=== PATIENT | female | born 1950 | race Caucasian/White ===

== ENCOUNTER → 2022-03-20 09:31 | Outpatient (BNVA) | payer MEDICARE, SELFPAY | PROVIDERS: PCP Physician Assistant Medical; Visit Provider Hospitalist | DX: R91.8 Other nonspecific abnormal finding of lung field (principal); J84.9 Interstitial pulmonary disease, unspecified; J18.9 Pneumonia, unspecified organism; R06.00 Dyspnea, unspecified; I71.2 Thoracic aortic aneurysm, without rupture; K44.9 Diaphragmatic hernia without obstruction or gangrene | CPT/HCPCS: 99202 ==

== ENCOUNTER 2022-04-23 10:45 | Outpatient (REF) | payer MEDICARE, SELFPAY ==
--- NOTE | 2022-04-23 12:55 | PFT_ITS ---
FLOWS: FEV1 of 83% of predicted at 1.95 L. FVC 72% of predicted at 2.26 L. FEV1 to FVC ratio of 0.86. No bronchodilator response. LUNG VOLUMES: Total lung capacity 80% of predicted at 4.32 L. Residual volume 73% of predicted at 1.74 L. Slow vital capacity 86% of predicted at 2.58 L. Expiratory reserve volume 31% of predicted at 0.23 L. Diffusion capacity is moderately decreased, diffusion capacity adjust to being mildly decreased after correction for alveolar ventilation. IMPRESSION: No obstructive or restrictive ventilatory defect. No bronchodilator response. Decreased expiratory reserve volume suggests extrathoracic restriction likely secondary to abdominal obesity. Decreased diffusion capacity suggests emphysema. MD RICK Portillo/MODL / [id number]
== END 2022-04-23 10:46 | disposition home or self-care (01) ==
LOC: HO.RESP 10:45
PROVIDERS: PCP Physician Assistant Medical; Visit Provider Hospitalist
DX: J18.9 Pneumonia, unspecified organism (principal); R06.00 Dyspnea, unspecified
CPT/HCPCS: 94060; 94727; 94729

== ENCOUNTER → 2022-05-02 09:33 | Outpatient (BNVA) | payer MEDICARE, SELFPAY | PROVIDERS: PCP Physician Assistant Medical; Visit Provider Hospitalist | DX: R91.8 Other nonspecific abnormal finding of lung field (principal); J84.9 Interstitial pulmonary disease, unspecified; I71.2 Thoracic aortic aneurysm, without rupture; K44.9 Diaphragmatic hernia without obstruction or gangrene; R06.00 Dyspnea, unspecified | CPT/HCPCS: 99212 ==

== ENCOUNTER 2022-07-19 08:08 | Outpatient (REF) | payer MEDICARE, SELFPAY ==
--- NOTE | ~2022-07-19 | FL_ITS ---
EXAMINATION: FL BARIUM SWALLOW CLINICAL INFORMATION: Gastroesophageal reflux disease without esophagitis COMPARISON: None TECHNIQUE: Barium swallow examination is performed using fluoroscopic evaluation in addition to multiple fluoroscopic spot views. The patient is imaged both upright and prone and using both thick and thin sulfate along with effervescent granules. Barium tablet was also administered. Fluoroscopy time: 1.2 minutes DAP: 7.2 Gycm2 Images: 48 FINDINGS: The swallowing mechanism appears normal. No aspiration or penetration is seen. There is posterior impression on the lower cervical esophagus suggestive of a prominent cricopharyngeus muscle. There is a small fixed hiatal hernia. There may be a small paraesophageal component as well. There is a prominent Schatzki ring. Barium tablet passed freely into the stomach. There is abnormal esophageal motility with tertiary contractions seen particularly when the patient is in the prone/CASEY position. There is trace gastroesophageal reflux. FL/FL barium swallow IMPRESSION: Small fixed hiatal hernia with Schatzki ring and probable small paraesophageal component as well. Trace gastroesophageal reflux. Abnormal esophageal motility with tertiary contractions, particularly when the patient is in the prone/CASEY position.
== END 2022-07-19 08:09 | disposition home or self-care (01) ==
LOC: HO.XRAY 08:08
PROVIDERS: PCP Physician Assistant Medical; Visit Provider Hospitalist
DX: K21.9 Gastro-esophageal reflux disease without esophagitis (principal); K44.9 Diaphragmatic hernia without obstruction or gangrene
CPT/HCPCS: 74220

== ENCOUNTER → 2022-08-22 10:03 | Outpatient (BNVA) | payer MEDICARE, SELFPAY | PROVIDERS: PCP Physician Assistant Medical; Visit Provider Hospitalist | DX: R91.8 Other nonspecific abnormal finding of lung field (principal); J84.9 Interstitial pulmonary disease, unspecified; K44.9 Diaphragmatic hernia without obstruction or gangrene; R06.00 Dyspnea, unspecified | CPT/HCPCS: 99212 ==

== ENCOUNTER → 2022-11-23 09:54 | Outpatient (BNVA) | payer MEDICARE, SELFPAY | PROVIDERS: PCP Physician Assistant Medical; Visit Provider Hospitalist | DX: R91.8 Other nonspecific abnormal finding of lung field (principal); J84.9 Interstitial pulmonary disease, unspecified; J18.9 Pneumonia, unspecified organism; I71.21 Aneurysm of the ascending aorta, without rupture; K44.9 Diaphragmatic hernia without obstruction or gangrene; R06.00 Dyspnea, unspecified | CPT/HCPCS: 99212 ==

== ENCOUNTER 2023-06-17 09:25 | Outpatient (AMB) | payer MEDICARE, SELFPAY ==
[2023-06-17 09:35] VITALS: BP 140/78; PULSE 66; O2SAT 98; BMI 31.3
--- NOTE | 2023-06-17 09:35 | MHC.OFFVIS ---
Intake Vital Signs 06/17/23 09:35 Height 5 ft 6 in Weight 194 lb 0.108 oz BMI 31.3 BP 140/78 H Blood Pressure Location Rt brachial Position Sitting Pulse 66 Pulse Source Pulse Oximeter Pulse Oximetry (%) 98 Oxygen Delivery Method Room Air Intake Visit Reasons: ILD Unix Developer Required: No Allergies No Known Allergies Allergy (Verified 06/17/23 09:38) HPI HPI Comments History of Present Illness Details The patient is a 73-year-old woman with a known history of an ascending aortic aneurysm followed closely by cardiology was been complaining of worsening dyspnea symptoms for the last few years. She did discuss the findings of the aneurysm with her spraying machine operator who felt that the aneurysm was not resulting in any respiratory symptoms. In the meantime in view of her dyspnea symptoms she did undergo a stress test and currently waiting for the results. Due to her worsening this symptom she did undergo a chest x-ray that was read to be abnormal and subsequently followed up with a CT scan of the chest. I personally reviewed the CT scan of the chest with her. It appears that she does have some reticular changes at the bases suggesting little bit of scarring and atelectasis. And she also has some patchy areas of ground-glass opacities could represent evidence of atelectasis and or pneumonitis. Patient also had some calcified pulmonary nodules consistent with granulomas bilaterally subcentimeter in size. In addition to that the patient did have a hiatal hernia. She does have underlying reflux symptoms and they apparently have been getting worse. Explained to the patient that the reflux disease will result in potential pharyngeal laryngeal penetration and ultimately can result in a change issue that she has on her CT scan the patient is a will start practicing more reflux diet and following some recommendations that were provided. In the meantime we talked about other potential etiologies for the abnormalities on her CT scan suggesting some degree of interstitial lung disease. She is going to undergo blood work in addition to pulmonary function studies to further delineate. No need for bronchoscopy or biopsy at this point. Will discuss that further after reviewing her blood work and her pulmonary function studies. Further questioning the patient denies any smoking her life. She does live in a farm and they grow [place] trees. The patient does not have any birds and denies any other significant exposures. 05/02/2022 the patient is here for a pulmonary follow-up visit. Overall she is doing about the same. She has not had to use her rescue inhaler. She continues to have some shortness of breath mild in severity. We did review all her blood work which was all negative for any connective tissue conditions, allergic go hypersensitivity reactions. No clear explanation for her interstitial changes primarily at the bases. The most likely etiology is from micro aspirations due to her hiatal hernia. Lately she has been having increasing epigastric discomfort. She did talk to her GI doctor about that. Her last endoscopy was several years ago. In view of her worsening GI symptoms and also findings on the CT scan I will request a barium swallow. We did talk about promotility agents although I do not feel the patient needs any promotility agents at this time. However, she will trial of sucralfate to see if it provides her some relief with her symptoms. Still we talked about the importance of the reflux diet the small meals and also sleeping elevated. will plan to to repeat her CT scan but primarily by her degree of symptoms. We will discuss that during the next visit. 08/22/2022 the patient is here for pulmonary follow-up visit. She is about the same. Still complaining of the dyspnea on exertion. again, will look at her pulmonary function studies there is the moderate diffusion impairment with DLCO 52% predicted. And again on her CT scan we personally reviewed demonstrating evidence of ground-glass opacities primarily in the right low lower with some areas of scarring and some minimal tree-in-bud. The distribution could be explained by microaspiration. Although other interstitial lung conditions are the differential. As far as the workup has been negative for any secondary causes the indeterminate with blood work. We did review her recent barium swallow demonstrating multiple abnormalities. She already has an appointment with GI and therefore will make sure that they have all the information available. The patient ultimately will need a repeat CT scan which with beginning of 2022 will follow-up with those results. I am hoping that the patient does not develop any progression of the underlying changes. Meantime I we did talk about other etiologies to explain the decreased diffusing capacity including pulmonary hypertension and anemia. She already had her hemoglobin checked which was okay. She does have a appointment with Cardiology soon a more been that she can get an echocardiogram to just address the question of pulmonary hypertension. 11/23/2022 The patient is here for a pulmonary follow up visit. Still complaining of dypnea on exertion. Doing well with her reflux. She did have a esophageal dilation. Still complaining of cough. Mild of moderate in severity. No sifnigicant response to the MARY. Will trial Symbicort. 06/17/2023 the patient is here for a pulmonary follow-up visit. She continues to be about the same. Complaining of dyspnea on exertion. Moderate severity. She did not trial the Symbicort because was 400 dollars for co-pay and was not worth it. In the meantime the patient has been using her Protonix and also trying to maintain a reflux diet. Explained to her that back respirations is likely resulting in the changes in her lung issues. The patient has not had a CT scan in more than a year. At this point repeating the CT scan will be important. Depending on the results we can consider an alternative to the Symbicort. We again reviewed her pulmonary function studies demonstrating a moderate decrease in the diffusing capacity. Depending on her CT scan we can also consider repeating the PFTs. We also reviewed her blood work and was all negative for any connective tissue disease or hyper sensitivity reactions. If there is any worsening of her interstitial lung disease we will discuss further diagnostic interventions. [facility] Medical History (Updated 03/20/22 @ 13:06 by David Pires MD) Dyspnea Hiatal hernia History of colon polyps Hyperlipidemia Hypertension Hypothyroidism ILD (interstitial lung disease) Pneumonitis Pulmonary nodules Thoracic ascending aortic aneurysm Surgical History (Updated 03/20/22 @ 09:20 by Jesenia Salinas PA-C) History of appendectomy History of partial hysterectomy History of tonsillectomy History of vaginal surgery Social History (Updated 03/20/22 @ 09:48 by RASHID James) Patient Tobacco Use Status: Never used Tobacco Review of Systems Const Denies fatigue and Denies weight loss Eyes Denies change in vision ENT Reports no additional complaints Card Denies chest pain, Reports dyspnea on exertion, Denies orthopnea and Denies paroxysmal nocturnal dyspnea Resp Reports cough and Reports dyspnea on exertion GI Denies abdominal pain, Denies dyspepsia and Reports heartburn Musc Reports no additional complaints Skin/Breast Denies rash Neuro Reports no additional complaints Psych Reports no additional complaints Endo Reports no additional complaints and Denies fatigue Physical Exam Vital Signs: Last Vital Signs Pulse 66 06/17/23 09:35 BP 140/78 H 06/17/23 09:35 Pulse Ox 98 06/17/23 09:35 Oxygen Delivery Method Room Air 06/17/23 09:35 BMI result Body Mass Index 31.3 Const General: alert Neck Neck: Yes normal visual inspection, Yes full ROM and Yes no lymphadenopathy Chest Chest palpation & inspection: normal inspection of the chest Resp Auscultation: no rales and diminished lung sounds Cardio Rate: regular rate Rhythm: regular rhythm Heart sounds: S1 normal heart sound present and S2 normal heart sound present GI Palpation (GI): Soft to palpation and nontender Auscultation: normal bowel sounds Skin General skin exam: rashes and/or lesions noted Assessment & Plan Assessment & Plan (1) Pulmonary nodules: Code(s): R91.8 - Other nonspecific abnormal finding of lung field (2) ILD (interstitial lung disease): Code(s): J84.9 - Interstitial pulmonary disease, unspecified (3) Pneumonitis: Code(s): J18.9 - Pneumonia, unspecified organism (4) Thoracic ascending aortic aneurysm: Comment: (4.5cm on 02/06/[address]) Code(s): I71.2 - Thoracic aortic aneurysm, without rupture (5) Hiatal hernia: Code(s): K44.9 - Diaphragmatic hernia without obstruction or gangrene (6) Dyspnea: Code(s): R06.00 - Dyspnea, unspecified Qualifiers: Dyspnea type: dyspnea on exertion Qualified Code(s): R06.00 - Dyspnea, unspecified Plan Continue with reflux diet short-acting beta agonist as needed CT chest follow-up in 3-4 months Orders: Orders CT chest wo IV con Today J18.9 - Pneumonia, unspecified organism, J84.9 - Interstitial pulmonary disease, unspecified Coding Level of Care Code Est Pt Level 4 (29280) Diagnoses Pulmonary nodules R91.8 ILD (interstitial lung disease) J84.9 Pneumonitis J18.9 Thoracic ascending aortic aneurysm I71.2 Hiatal hernia K44.9 Dyspnea R06.00 Dyspnea type: dyspnea on exertion Time Spent (min) 19
== END 2023-06-17 09:57 | disposition home or self-care (01) ==
PROVIDERS: PCP Physician Assistant Medical; Visit Provider Hospitalist
DX: R91.8 Other nonspecific abnormal finding of lung field (principal); J84.9 Interstitial pulmonary disease, unspecified; I71.20 Thoracic aortic aneurysm, without rupture, unspecified; K44.9 Diaphragmatic hernia without obstruction or gangrene; R06.00 Dyspnea, unspecified
CPT/HCPCS: 99214

== ENCOUNTER → 2023-06-17 09:25 | Outpatient (BNVA) | payer MEDICARE, SELFPAY | PROVIDERS: PCP Physician Assistant Medical; Visit Provider Hospitalist | DX: J84.9 Interstitial pulmonary disease, unspecified (principal); R06.00 Dyspnea, unspecified; R91.8 Other nonspecific abnormal finding of lung field; I71.20 Thoracic aortic aneurysm, without rupture, unspecified; K44.9 Diaphragmatic hernia without obstruction or gangrene | CPT/HCPCS: 99212 ==

== ENCOUNTER 2024-01-10 08:58 | Outpatient (AMB) | payer MEDICARE, SELFPAY ==
[2024-01-10 09:04] VITALS: BP 128/70; PULSE 67; O2SAT 96; BMI 30.7
--- NOTE | 2024-01-10 09:04 | A.OFFVIS_ITS ---
Intake Vital Signs 01/10/24 09:04 Height 5 ft 6 in Weight 190 lb BMI 30.7 BP 128/70 Blood Pressure Location Rt brachial Position Sitting Pulse 67 Pulse Source Pulse Oximeter Pulse Oximetry (%) 96 Oxygen Delivery Method Room Air Intake Visit Reasons: ILD [employer] Pot Press Operator Required: No Allergies No Known Allergies Allergy (Verified 01/10/24 09:07) HPI HPI Comments History of Present Illness Details The patient is a 73-year-old woman with a known history of an ascending aortic aneurysm followed closely by cardiology was been complaining of worsening dyspnea symptoms for the last few years. She did discuss the findings of the aneurysm with her territory supervisor who felt that the aneurysm was not resulting in any respiratory symptoms. In the meantime in view of her dyspnea symptoms she did undergo a stress test and currently waiting for the results. Due to her worsening this symptom she did undergo a chest x-ray that was read to be abnormal and subsequently followed up with a CT scan of the chest. I personally reviewed the CT scan of the chest with her. It appears that she does have some reticular changes at the bases suggesting little bit of scarring and atelectasis. And she also has some patchy areas of ground-glass opacities could represent evidence of atelectasis and or pneumonitis. Patient also had some calcified pulmonary nodules consistent with granulomas bilaterally subcentimeter in size. In addition to that the patient did have a hiatal hernia. She does have underlying reflux symptoms and they apparently have been getting worse. Explained to the patient that the reflux disease will result in potential pharyngeal laryngeal penetration and ultimately can result in a change issue that she has on her CT scan the patient is a will start practicing more reflux diet and following some recommendations that were provided. In the meantime we talked about other potential etiologies for the abnormalities on her CT scan suggesting some degree of interstitial lung disease. She is going to undergo blood work in addition to pulmonary function studies to further delineate. No need for bronchoscopy or biopsy at this point. Will discuss that further after reviewing her blood work and her pulmonary function studies. Further questioning the patient denies any smoking her life. She does live in a farm and they grow [place] trees. The patient does not have any birds and denies any other significant exposures. 08/22/2022 the patient is here for pulmo nary follow-up visit. She is about the same. Still complaining of the dyspnea on exertion. again, will look at her pulmonary function studies there is the moderate diffusion impairment with DLCO 52% predicted. And again on her CT scan we personally reviewed demonstrating evidence of ground-glass opacities primarily in the right low lower with some areas of scarring and some minimal tree-in-bud. The distribution could be explained by microaspiration. Although other interstitial lung conditions are the differential. As far as the workup has been negative for any secondary causes the indeterminate with blood work. We did review her recent barium swallow demonstrating multiple abnormalities. She already has an appointment with GI and therefore will make sure that they have all the information available. The patient ultimately will need a repeat CT scan which with beginning of 2022 will follow-up with those results. I am hoping that the patient does not develop any progression of the underlying changes. Meantime I we did talk about other etiologies to explain the decreased diffusing capacity including pulmonary hypertension and anemia. She already had her hemoglobin checked which was okay. She does have a appointment with Cardiology soon a more been that she can get an echocardiogram to just address the question of pulmonary hypertension. 06/17/2023 the patient is here for a pulmo [facility] follow-up visit. She continues to be about the same. Complaining of dyspnea on exertion. Moderate severity. She did not trial the Symbicort because was 400 dollars for co-pay and was not worth it. In the meantime the patient has been using her Protonix and also trying to maintain a reflux diet. Explained to her that back respirations is likely resulting in the changes in her lung issues. The patient has not had a CT scan in more than a year. At this point repeating the CT scan will be important. Depending on the results we can consider an alternative to the Symbicort. We again reviewed her pulmonary function studies demonstrating a moderate decrease in the diffusing capacity. Depending on her CT scan we can also consider repeating the PFTs. We also reviewed her blood work and was all negative for any connective tissue disease or hyper sensitivity reactions. If there is any worsening of her interstitial lung disease we will discuss further diagnostic interventions. 01/10/2024 [facility] The patient continues to be about the same. Still complains of dyspnea on exertion. Moderate severity also has reflux symptoms. She has been on PPIs. She does follow closely with her doctors regarding her hiatal hernia. We did look at her last CT scan of the chest that was done back in June 2023 demonstrating areas of interstitial lung disease met primarily in the right lung with atelectasis. She also has pulmonary nodules. We have already done blood work evaluation to assess her interstitial lung disease and it was pretty unremarkable. I did suspect that has to do with aspiration pneumonitis. She is likely micro aspirating do her Hiatal hernia. Therefore, will go ahead and start her on a promotility agent just for 4 weeks and see if she sees any improvement. In addition to that due to the pneumonitis will start her on inhaled cortical steroid to see if that can improve the inflammatory changes. We did look at her last pulmonary function studies. There were hard for her to do. Still it demonstrated that she had a moderate diffusion impairment. Explained to her that that is likely causing her to have the increased shortness breath with activity. The other option is to use prednisone but at this point the patient would like to hold off on using any systemic steroids because of the adverse effects. She is agreeable to trying an inhaled cortical steroid to try to decrease that inflammation without causing the systemic adverse effects. This point the patient will start inhaled cortical steroids and will try the azithromycin for now. Will plan to repeat CT scan in June 2024 and will quickly follow-up after that to follow-up those changes. If the patient has any worsening symptoms prior to that she will call the office. [facility] Medical History (Updated 03/20/22 @ 13:06 by David Pires MD) Dyspnea Pneumonitis ILD (interstitial lung disease) Pulmonary nodules Hiatal hernia History of colon polyps Hypothyroidism Thoracic ascending aortic aneurysm Hyperlipidemia Hypertension Surgical History (Updated 03/20/22 @ 09:20 by Jesenia Salinas PA-C) History of vaginal surgery History of partial hysterectomy History of tonsillectomy History of appendectomy Social History (Updated 03/20/22 @ 09:48 by RASHID James) Patient Tobacco Use Status: Never used Tobacco Review of Systems Const Denies fatigue and Denies weight loss Eyes Denies change in vision ENT Reports no additional complaints Card Denies chest pain, Reports dyspnea on exertion, Denies orthopnea and Denies paroxysmal nocturnal dyspnea Resp Reports cough and Reports dyspnea on exertion GI Denies abdominal pain, Reports dyspepsia and Reports heartburn Musc Reports no additional complaints Skin/Breast Denies rash Neuro Reports no additional complaints Psych Reports no additional complaints Endo Reports no additional complaints and Denies fatigue Physical Exam Vital Signs: Last Vital Signs Pulse 67 01/10/24 09:04 BP 128/70 01/10/24 09:04 Pulse Ox 96 01/10/24 09:04 Oxygen Delivery Method Room Air 01/10/24 09:04 BMI result Body Mass Index 30.7 Const General: alert Neck Neck: Yes normal visual inspection, Yes full ROM and Yes no lymphadenopathy Chest Chest palpation & inspection: normal inspection of the chest Resp Auscultation: no rales and diminished lung sounds Cardio Rate: regular rate Rhythm: regular rhythm Heart sounds: S1 normal heart sound present and S2 normal heart sound present GI Palpation (GI): Soft to palpation and nontender Auscultation: normal bowel sounds Skin General skin exam: rashes and/or lesions noted Assessment & Plan Assessment & Plan (1) Pulmonary nodules: Code(s): R91.8 - Other nonspecific abnormal finding of lung field (2) ILD (interstitial lung disease): Code(s): J84.9 - Interstitial pulmonary disease, unspecified (3) Pneumonitis: Code(s): J18.9 - Pneumonia, unspecified organism (4) Thoracic ascending aortic aneurysm: Comment: (4.5cm on 02/06/[address]) Code(s): I71.2 - Thoracic aortic aneurysm, without rupture (5) Hiatal hernia: Code(s): K44.9 - Diaphragmatic hernia without obstruction or gangrene (6) Dyspnea: Code(s): R06.00 - Dyspnea, unspecified Qualifiers: Dyspnea type: dyspnea on exertion Qualified Code(s): R06.00 - Dyspnea, unspecified Plan Continue with reflux diet short-acting beta agonist as needed start Azithrmomycin MWF as a promotility agent start ICS to minimize inflammation CT chest 06/2024 F/U with Cardiology/PCP re: aneuryms. follow-up in June 2024 Orders: Orders CT chest wo IV con 06/22/24 R91.8 - Other nonspecific abnormal finding of lung field Medications: New azithromycin Take 1 tablet on Saturday/Saturday/Saturday 250 mg PO 3XW 28 days 12 tabs 1RF K21.9 - Gastro-esophageal reflux disease without esophagitis fluticasone furoate 100 mcg/actuation (Arnuity Ellipta) 1 inh inhalation DAILY 30 days 30 ea 6RF Coding Level of Care Code Est Pt Level 4 (21796) Diagnoses Pulmonary nodules R91.8 ILD (interstitial lung disease) J84.9 Pneumonitis J18.9 Thoracic ascending aortic aneurysm I71.2 Hiatal hernia K44.9 Dyspnea on exertion R06.00 Dyspnea type: dyspnea on exertion Time Spent (min) 17
== END 2024-01-10 09:41 | disposition home or self-care (01) ==
PROVIDERS: PCP Physician Assistant Medical; Visit Provider Hospitalist
DX: J84.9 Interstitial pulmonary disease, unspecified (principal); R91.8 Other nonspecific abnormal finding of lung field; I71.20 Thoracic aortic aneurysm, without rupture, unspecified; K44.9 Diaphragmatic hernia without obstruction or gangrene
CPT/HCPCS: 99214

== ENCOUNTER → 2024-01-10 08:58 | Outpatient (BNVA) | payer MEDICARE, SELFPAY | PROVIDERS: PCP Physician Assistant Medical; Visit Provider Hospitalist | DX: J84.9 Interstitial pulmonary disease, unspecified (principal); J18.9 Pneumonia, unspecified organism; R91.8 Other nonspecific abnormal finding of lung field; I71.20 Thoracic aortic aneurysm, without rupture, unspecified; K44.9 Diaphragmatic hernia without obstruction or gangrene; R06.00 Dyspnea, unspecified | CPT/HCPCS: 99212 ==

== ENCOUNTER 2024-06-19 09:57 | Outpatient (AMB) | payer MEDICARE, SELFPAY ==
--- NOTE | 2024-06-19 10:00 | A.OFFVIS_ITS ---
Vital Signs 06/19/24 10:01 Height 5 ft 6 in Weight 190 lb BMI 30.7 Pulse 69 Pulse Source Pulse Oximeter Pulse Oximetry (%) 97 Oxygen Delivery Method Room Air Intake Visit Reasons: ILD/CT Follow Up Quality Review Specialist Required: No Allergies No Known Allergies Allergy (Verified 06/19/24 10:02) HPI Comments Details: The patient is a 74-year-old woman with a known history of an ascending aortic aneurysm followed closely by cardiology was been complaining of worsening dyspnea symptoms for the last few years. She did discuss the findings of the aneurysm with her fashion consultant who felt that the aneurysm was not resulting in any respiratory symptoms. In the meantime in view of her dyspnea symptoms she did undergo a stress test and currently waiting for the results. Due to her worsening this symptom she did undergo a chest x-ray that was read to be abnormal and subsequently followed up with a CT scan of the chest. I personally reviewed the CT scan of the chest with her. It appears that she does have some reticular changes at the bases suggesting little bit of scarring and atelectasis. And she also has some patchy areas of ground-glass opacities could represent evidence of atelectasis and or pneumonitis. Patient also had some calcified pulmonary nodules consistent with granulomas bilaterally subcentimeter in size. In addition to that the patient did have a hiatal hernia. She does have underlying reflux symptoms and they apparently have been getting worse. Explained to the patient that the reflux disease will result in potential pharyngeal laryngeal penetration and ultimately can result in a change issue that she has on her CT scan the patient is a will start practicing more reflux diet and following some recommendations that were provided. In the meantime we talked about other potential etiologies for the abnormalities on her CT scan suggesting some degree of interstitial lung disease. She is going to undergo blood work in addition to pulmonary function studies to further delineate. No need for bronchoscopy or biopsy at this point. Will discuss that further after reviewing her blood work and her pulmonary function studies. Further questioning the patient denies any smoking her life. She [place] live in a farm and they grow [place] trees. The patient does not have any birds and denies any other significant exposures. 08/22/2022 the patient is here for pulmonary follow-up visit. She is about the same. Still complaining of the dyspnea on exertion. again, will look at her pulmonary function studies there is the moderate diffusion impairment with DLCO 52% predicted. And again on her CT scan we personally reviewed demonstrating evidence of ground-glass opacities primarily in the right low lower with some areas of scarring and some minimal tree-in-bud. The distribution could be explained by microaspiration. Although other interstitial lung conditions are the differential. As far as the workup has been negative for any secondary causes the indeterminate with blood work. We did review her recent barium swallow demonstrating multiple abnormalities. She already has an appointment with GI and therefore will make sure that they have all the information available. The patient ultimately will need a repeat CT scan which with beginning of 2022 will follow-up with those results. I am hoping that the patient does not develop any progression of the underlying changes. Meantime I we did talk about other etiologies to explain the decreased diffusing capacity including pulmonary hypertension and anemia. She already had her hemoglobin checked which was okay. She does have a appointment with Cardiology soon a more been that she can get an echocardiogram to just address the question of pulmonary hypertension. 06/17/2023 the patient is here for a pulmonary follow-up visit. She continues to be about the same. Complaining of dyspnea on exertion. Moderate severity. She did not trial the Symbicort because was 400 dollars for co-pay and was not worth it. In the meantime the patient has been using her Protonix and also trying to maintain a reflux diet. Explained to her that back respirations is likely resulting in the changes in her lung issues. The patient has not had a CT scan in more than a year. At this point repeating the CT scan will be important. Depending on the results we can consider an alternative to the Symbicort. We again reviewed her pulmonary function studies demonstrating a moderate decrease in the diffusing capacity. Depending on her CT scan we can also consider repeating the PFTs. We also reviewed her blood work and was all negative for any connective tissue disease or hyper sensitivity reactions. If there is any worsening of her interstitial lung disease we will discuss further diagnostic interventions. 01/10/2024 the patient is here for a pulmonary follow-up visit. The patient continues to be about the same. Still complains of dyspnea on exertion. Moderate severity also has reflux symptoms. She has been on PPIs. She does follow closely with her doctors regarding her hiatal hernia. We did look at her last CT scan of the chest that was done back in June 2023 demonstrating areas of interstitial lung disease met primarily in the right lung with atelectasis. She also has pulmonary nodules. We have already done blood work evaluation to assess her interstitial lung disease and it was pretty unremarkable. I did suspect that has to do with aspiration pneumonitis. She is likely micro aspirating do her Hiatal hernia. Therefore, will go ahead and start her on a promotility agent just for 4 weeks and see if she sees any improvement. In addition to that due to the pneumonitis will start her on inhaled cortical steroid to see if that can improve the inflammatory changes. We did look at her last pulmonary function studies. There were hard for her to do. Still it demonstrated that she had a moderate diffusion impairment. Explained to her that that is likely causing her to have the increased shortness breath with activity. The other option is to use prednisone but at this point the patient would like to hold off on using any systemic steroids because of the adverse effects. She is agreeable to trying an inhaled cortical steroid to try to decrease that inflammation without causing the systemic adverse effects. This point the patient will start inhaled cortical steroids and will try the azithromycin for now. Will plan to repeat CT scan in June 2024 and will quickly follow-up after that to follow-up those changes. If the patient has any worsening symptoms prior to that she will call the office. 06/19/2024 the patient is here for a pulmonary follow-up visit. The patient overall has been doing okay. She did try the azithromycin only for a week and did not see any significant improvement and therefore she stopped it. She does not like the idea of taking too many antibiotics and she has taken a few antibiotics already for other things. In addition to that she tried the inhaler for about a month and she did not see any significant improvement. She did have a CT scan of the chest in 03/30/2024 at [facility] which we personally reviewed. The patient does have a moderate size hiatal hernia and does have the interstitial changes primarily at the bases. But now it was mentioned and we did evaluate that she does have some ground-glass nodular densities in the upper lung zones especially the right. Still could be aspiration related. He is working closely with the GI doctors and she is making sure she sleeps elevated in continues a reflux diet. We did blood work in the past and it all worked out pretty much unremarkable. Will plan to repeat the CT scan sometime in September to follow with ground-glass nodular densities. In the meantime she is going to follow-up with the GI doctor and see about the hiatal hernia appears [facility] Medical History (Updated 03/20/22 @ 13:06 by David Pires MD) Dyspnea Pneumonitis ILD (interstitial lung disease) Pulmonary nodules Hiatal hernia History of colon polyps Hypothyroidism Thoracic ascending aortic aneurysm Hyperlipidemia Hypertension Surgical History (Updated 03/20/22 @ 09:20 by Jesenia Salinas PA-C) History of vaginal surgery History of partial hysterectomy History of tonsillectomy History of appendectomy Social History (Updated 03/20/22 @ 09:48 by RASHID James) Patient Tobacco Use Status: Never used Tobacco Review of Systems Const Denies fatigue and Denies weight loss Eyes Denies change in vision ENT Reports no additional complaints Card Denies chest pain, Reports dyspnea on exertion, Denies orthopnea and Denies paroxysmal nocturnal dyspnea Resp Reports cough and Reports dyspnea on exertion GI Denies abdominal pain, Reports dyspepsia and Reports heartburn Musc Reports no additional complaints Skin/Breast Denies rash Neuro Reports no additional complaints Psych Reports no additional complaints Endo Reports no additional complaints and Denies fatigue Physical Exam Vital Signs: Last Vital Signs Pulse 69 06/19/24 10:01 Pulse Ox 97 06/19/24 10:01 Oxygen Delivery Method Room Air 06/19/24 10:01 BMI result Body Mass Index 30.7 Const General: alert Neck Neck: Yes normal visual inspection, Yes full ROM and Yes no lymphadenopathy Chest Chest palpation & inspection: normal inspection of the chest Resp Auscultation: no rales and diminished lung sounds Cardio Rate: regular rate Rhythm: regular rhythm Heart sounds: S1 normal heart sound present and S2 normal heart sound present GI Palpation (GI): Soft to palpation and nontender Auscultation: normal bowel sounds Skin General skin exam: rashes and/or lesions noted Assessment & Plan Assessment & Plan (1) Pulmonary nodules: Code(s): R91.8 - Other nonspecific abnormal finding of lung field Category: Medical (2) ILD (interstitial lung disease): Code(s): J84.9 - Interstitial pulmonary disease, unspecified Category: Medical (3) Pneumonitis: Code(s): J18.9 - Pneumonia, unspecified organism Category: Medical (4) Thoracic ascending aortic aneurysm: Comment: (4.5cm on 02/06/[address]) Code(s): I71.2 - Thoracic aortic aneurysm, without rupture Category: Medical (5) Hiatal hernia: Code(s): K44.9 - Diaphragmatic hernia without obstruction or gangrene Category: Medical (6) Dyspnea: Code(s): R06.00 - Dyspnea, unspecified Category: Medical Qualifiers: Dyspnea type: dyspnea on exertion Qualified Code(s): R06.00 - Dyspnea, unspecified Plan Continue with reflux diet short-acting beta agonist as needed hold Azithrmomycin MWF as a promotility agent stop ICS to minimize inflammation F/U with Cardiology/PCP re: aneuryms. CT chest Fall 2024 (F/U new 1.6cm nodule noted on 03/2024) follow-up in Oct 2024 Coding Level of Care Code Est Pt Level 4 (44267) Diagnoses Pulmonary nodules R91.8 ILD (interstitial lung disease) J84.9 Pneumonitis J18.9 Thoracic ascending aortic aneurysm I71.2 Hiatal hernia K44.9 Dyspnea on exertion R06.00 Dyspnea type: dyspnea on exertion Time Spent (min) 17
[2024-06-19 10:01] VITALS: PULSE 69; O2SAT 97; BMI 30.7
== END 2024-06-19 10:38 | disposition home or self-care (01) ==
PROVIDERS: PCP Physician Assistant Medical; Visit Provider Hospitalist
DX: J84.9 Interstitial pulmonary disease, unspecified (principal); R91.8 Other nonspecific abnormal finding of lung field; I71.20 Thoracic aortic aneurysm, without rupture, unspecified
CPT/HCPCS: 99214

== ENCOUNTER → 2024-06-19 09:57 | Outpatient (BNVA) | payer MEDICARE, SELFPAY | PROVIDERS: PCP Physician Assistant Medical; Visit Provider Hospitalist | DX: J84.9 Interstitial pulmonary disease, unspecified (principal); I71.9 Aortic aneurysm of unspecified site, without rupture; K21.9 Gastro-esophageal reflux disease without esophagitis; R91.8 Other nonspecific abnormal finding of lung field; I71.20 Thoracic aortic aneurysm, without rupture, unspecified; K44.9 Diaphragmatic hernia without obstruction or gangrene; R06.00 Dyspnea, unspecified | CPT/HCPCS: 99212 ==

== ENCOUNTER 2024-11-16 10:59 | Outpatient (AMB) | payer MEDICARE, SELFPAY ==
--- NOTE | 2024-11-16 11:02 | A.OFFVIS_ITS ---
Vital Signs 11/16/24 11:03 Height 5 ft 6 in Weight 192 lb 14.472 oz BMI 31.1 BP 140/82 H Blood Pressure Location Rt brachial Position Sitting Pulse 58 Pulse Source Pulse Oximeter Pulse Oximetry (%) 96 Oxygen Delivery Method Room Air Intake Visit Reasons: ILD Allergies No Known Allergies Allergy (Verified 11/16/24 11:06) HPI Comments Details: The patient is a 74-year-old woman with a known history of an ascending aortic aneurysm followed closely by cardiology was been complaining of worsening dyspnea symptoms for the last few years. She did discuss the findings of the aneurysm with her white shoe examiner who felt that the aneurysm was not resulting in any respiratory symptoms. In the meantime in view of her dyspnea symptoms she did undergo a stress test and currently waiting for the results. Due to her worsening this symptom she did undergo a chest x-ray that was read to be abnormal and subsequently followed up with a CT scan of the chest. I personally reviewed the CT scan of the chest with her. It appears that she does have some reticular changes at the bases suggesting little bit of scarring and atelec tasis. And she also has some patchy areas of ground-glass opacities could represent evidence of atelectasis and or pneumonitis. Patient also had some calcified pulmonary nodules consistent with granulomas bilaterally subcentimeter in size. In addition to that the patient did have a hiatal hernia. She does have underlying reflux symptoms and they apparently have been getting worse. Explained to the patient that the reflux disease will result in potential pharyngeal laryngeal penetration and ultimately can result in a change issue that she has on her CT scan the patient is a will start practicing more reflux diet and following some recommendations that were provided. In the meantime we talked about other potential etiologies for the abnormalities on her CT scan suggesting some degree of interstitial lung disease. She is going to undergo blood work in addition to pulmonary function studies to further delineate. No need for bronchoscopy or biopsy at this point. Will discuss that further after reviewing her blood work and her pulmonary function studies. Further questioning the patient denies any smoking her life. She does live in a farm and they grow [place] trees. The patient does not have any birds and denies any other significant exposures. 08/22/2022 the patient is here for pulmonary follow-up visit. She is about the same. Still complaining of the dyspnea on exertion. again, will look at her pulmonary function studies there is the moderate diffusion impairment with DLCO 52% predicted. And again on her CT scan we personally reviewed demonstrating evidence of ground-glass opacities primarily in the right low lower with some areas of scarring and some minimal tree-in-bud. The distribution could be explained by microaspiration. Although other interstitial lung conditions are the differential. As far as the workup has been negative for any secondary causes the indeterminate with blood work. We did review her recent barium swallow demonstrating multiple abnormalities. She already has an appointment with GI and therefore will make sure that they have all the information available. The patient ultimately will need a repeat CT scan which with silver thomasing of 2022 will follow-up with those results. I am hoping that the patient does not develop any progression of the underlying changes. Meantime I we did talk about other etiologies to explain the decreased diffusing capacity including pulmonary hypertension and anemia. She already had her hemoglobin checked which was okay. She does have a appointment with Cardiology soon a more been that she can get an echocardiogram to just address the question of pulmonary hypertension. 06/17/2023 the patient is here for a pulmonary follow-up visit. She continues to be about the same. Complaining of dyspnea on exertion. Moderate severity. She did not trial the Symbicort because was 400 dollars for co-pay and was not worth it. In the meantime the patient has been using her Protonix and also trying to maintain a reflux diet. Explained to her that back respirations is likely resulting in the changes in her lung issues. The patient has not had a CT scan in more than a year. At this point repeating the CT scan will be important. Depending on the results we can consider an alternative to the Symbicort. We again reviewed her pulmonary function studies demonstrating a moderate decrease in the diffusing capacity. Depending on her CT scan we can also consider repeating the PFTs. We also reviewed her blood work and was all negative for any connective tissue disease or hyper sensitivity reactions. If there is any worsening of her interstitial lung disease we will discuss further diagnostic interventions. 01/10/2024 the patient is here for a pulmonary follow-up visit. The patient co ntinues to be about the same. Still complains of dyspnea on exertion. Moderate severity also has reflux symptoms. She has been on PPIs. She does follow closely with her doctors regarding her hiatal hernia. We did look at her last CT scan of the chest that was done back in June 2023 demonstrating areas of interstitial lung disease met primarily in the right lung with atelectasis. She also has pulmonary nodules. We have already done blood work evaluation to assess her interstitial lung disease and it was pretty unremarkable. I did suspect that has to do with aspiration pneumonitis. She is likely micro aspirating do her Hiatal hernia. Therefore, will go ahead and start her on a promotility agent just for 4 weeks and see if she sees any improvement. In addition to that due to the pneumonitis will start her on inhaled cortical steroid to see if that can improve the inflammatory changes. We did look at her last pulmonary function studies. There were hard for her to do. Still it demonstrated that she had a moderate diffusion impairment. Explained to her that that is likely causing her to have the increased shortness breath with activity. The other option is to use prednisone but at this point the patient would like to hold off on using any systemic steroids because of the adverse effects. She is agreeable to trying an inhaled cortical steroid to try to decrease that inflammation without causing the systemic adverse effects. This point the patient will start inhaled cortical steroids and will try the azithromycin for now. Will plan to repeat CT scan in June 2024 and will quickly follow-up after that to follow-up those changes. If the patient has any worsening symptoms prior to that she will call the office. 06/19/2024 the patient is here for a pulmonary follow-up visit. The patient overall has been doing okay. She did try the azithromycin only for a week and did not see any significant improvement and therefore she stopped it. She does not like the idea of taking too many antibiotics and she has taken a few antibiotics already for other things. In addition to that she tried the inhaler for about a month and she did not see any significant improvement. She did have a CT scan of the chest in 03/30/2024 at [facility] which we personally reviewed. The patient does have a moderate size hiatal hernia and does have the interstitial changes primarily at the bases. But now it was mentioned and we did evaluate that she does have some ground-glass nodular densities in the upper lung zones especially the right. Still could be asp iration related. He is working closely with the GI doctors and she is making sure she sleeps elevated in continues a reflux diet. We did blood work in the past and it all worked out pretty much unremarkable. Will plan to repeat the CT scan sometime in September to follow with ground-glass nodular densities. In the meantime she is going to follow-up with the GI doctor and see about the hiatal hernia appears 11/16/2024 the patient is here for a pulmonary follow-up visit. Overall seems to be doing well from a respiratory status. Denies any cough or shortness of breath. She did have a CT scan of the chest that we personally reviewed and compared to previous. Seems like her nodular density has resolved. She does have some areas of scarring primarily the bases likely for microaspiration but appeared to be minimal and stable. No evidence of any progression. She does have a moderate-sized hiatal hernia. She also underwent a barium swallow that we did review demonstrating a mild Zenker's diverticulum. Is going to follow-up with GI. She is not having any regurgitation food at this time. Her respiratory symptoms are better so I suspect also that her microaspiration is under control specially with good results of her CT scan. Therefore, she will continue with the reflux diet continue with the medications as prescribed. She will follow-up in the fall 2024. She has any issues prior to that she will call for an earlier assessment. Holding off on any further imaging at this time. [facility] Medical History (Updated 11/16/24 @ 22:24 by David Pires MD) Dyspnea Pneumonitis ILD (interstitial lung disease) Pulmonary nodules Hiatal hernia History of colon polyps Hypothyroidism Thoracic ascending aortic aneurysm Hyperlipidemia Hypertension Surgical History (Updated 03/20/22 @ 09:20 by Jesenia Salinas PA-C) History of vaginal surgery History of partial hysterectomy History of tonsillectomy History of appendectomy Social History Patient Tobacco Use Status: Never used Tobacco Review of Systems Const Denies fatigue and Denies weight loss Eyes Denies change in vision ENT Reports no additional complaints Card Denies chest pain, Reports dyspnea on exertion, Denies orthopnea and Denies paroxysmal nocturnal dyspnea Resp Reports cough and Reports dyspnea on exertion GI Denies abdominal pain, Reports dyspepsia and Reports heartburn Musc Reports no additional complaints Skin/Breast Denies rash Neuro Reports no additional complaints Psych Reports no additional complaints Endo Reports no additional complaints and Denies fatigue Physical Exam Vital Signs: Last Vital Signs Pulse 58 11/16/24 11:03 BP 140/82 H 11/16/24 11:03 Pulse Ox 96 11/16/24 11:03 Oxygen Delivery Method Room Air 11/16/24 11:03 BMI result Body Mass Index 31.1 Const General: alert Neck Neck: Yes normal visual inspection, Yes full ROM and Yes no lymphadenopathy Chest Chest palpation & inspection: normal inspection of the chest Resp Auscultation: no rales and diminished lung sounds Cardio Rate: regular rate Rhythm: regular rhythm Heart sounds: S1 normal heart sound present and S2 normal heart sound present GI Palpation (GI): Soft to palpation and nontender Auscultation: normal bowel sounds Skin General skin exam: rashes and/or lesions noted Assessment & Plan Assessment & Plan (1) Pulmonary nodules: Code(s): R91.8 - Other nonspecific abnormal finding of lung field Category: Medical (2) ILD (interstitial lung disease): Code(s): J84.9 - Interstitial pulmonary disease, unspecified Category: Medical (3) Pneumonitis: Comment: resolved Code(s): J18.9 - Pneumonia, unspecified organism Category: Medical (4) Thoracic ascending aortic aneurysm: Comment: (4.5cm on 02/06/[address])->4.3(2022)->4.4 Code(s): I71.2 - Thoracic aortic aneurysm, without rupture Category: Medical (5) Hiatal hernia: Code(s): K44.9 - Diaphragmatic hernia without obstruction or gangrene Category: Medical (6) Dyspnea: Comment: better Code(s): R06.00 - Dyspnea, unspecified Category: Medical Qualifiers: Dyspnea type: dyspnea on exertion Qualified Code(s): R06.00 - Dyspnea, unspecified Plan Continue with reflux diet short-acting beta agonist as needed stop ICS to minimize inflammation F/U with Cardiology/PCP re: aneuryms. CT chest Fall 2024, 1.6cm nodule not present follow-up Fall 2024 Coding Level of Care Code Est Pt Level 4 (50329) Complex EM visit Add On G2211 Diagnoses Pulmonary nodules R91.8 ILD (interstitial lung disease) J84.9 Pneumonitis J18.9 Thoracic ascending aortic aneurysm I71.2 Hiatal hernia K44.9 Dyspnea on exertion R06.00 Dyspnea type: dyspnea on exertion Time Spent (min) 17
[2024-11-16 11:03] VITALS: BP 140/82; PULSE 58; O2SAT 96; BMI 31.1
--- OUTSIDE RECORDS SUMMARY | 2024-11-16 12:30 | XMS_ITS ---
Author Name [facility] Organization Unknown History of Medication Use Medication Directions Dispensed Refills Start Date End Date Stat us hydroCHLOROthiazide (HYDRODIURIL) 12.5 MG tablet Take 1 tablet (12.5 mg total) by mouth daily. 03/13/2024 active levothyroxine (SYNTHROID, LEVOTHROID) 100 MCG tablet Take 1 tablet (100 mcg total) by mouth daily on an empty stomach. 03/13/2024 active rosuvastatin (CRESTOR) 20 MG tablet Take 1 tablet (20 mg total) by mouth daily. 03/13/2024 active levothyroxine (SYNTHROID, LEVOTHROID) 112 MCG tablet Take 1 tablet (112 mcg total) by mouth daily. 02/13/2024 active furosemide (LASIX) 20 MG tablet Take 1 tablet (20 mg total) by mouth daily. 02/13/2024 active rosuvastatin (CRESTOR) 10 MG tablet Take 1 tablet (10 mg total) by mouth daily. 02/13/2024 active senna-docusate (SENNA-S) 8.6-50 MG Take 1 tablet by mouth daily. 02/13/2024 active metoPROLOL SUCCINATE (TOPROL-XL) 25 MG 24 hr tablet Take 1 tablet (25 mg total) by mouth daily. 02/13/2024 active aspirin enteric coated (ECOTRIN LOW STRENGTH) 81 MG EC tablet Take 1 tablet (81 mg total) by mouth daily. 02/13/2024 active multivitamin Tab tablet Take 1 tablet by mouth daily. 02/13/2024 active cholecalciferol (CHOLECALCIFEROL) 25 MCG (1000 UT) tablet Take 1 tablet (1,000 Units total) by mouth daily. 02/13/2024 active PANTOprazole (PROTONIX) 40 MG EC tablet Take 1 tablet (40 mg total) by mouth 2 times a day. 02/13/2024 active Problems Problem Status Onset Date Problem Type Date of Resoluti on Source Dyspnea on exertion active 2024-02-05 ProblemAct [facility] Gastroesophageal reflux disease without esophagitis active 2024-02-05 ProblemAct [facility] Interstitial lung disease active 2024-02-05 ProblemAct [facility] History of colon polyps active 2024-02-05 ProblemAct [facility] Other hyperlipidemia active 2024-02-05 ProblemAct [facility] IBS (irritable bowel syndrome) active 2024-02-05 ProblemAct [facility] Nonrheumatic aortic valve insufficiency active 2024-02-05 ProblemAct [facility] Other specified hypothyroidism active 2024-02-05 ProblemAct [facility] Primary hypertension active 2024-02-05 ProblemAct [facility] Enterocele with complete uterovaginal prolapse active 2024-02-05 ProblemAct [facility] Pulmonary nodules active 2024-02-05 ProblemAct [facility] Ascending aortic aneurysm active 2024-02-05 ProblemAct [facility] Old tear of meniscus of left knee active 2024-02-05 ProblemAct [facility] Migraine active 2024-02-05 ProblemAct [facility] Hiatal hernia active 2024-02-05 ProblemAct [facility] T TIA (transient ischemic attack) active 2024-02-05 ProblemAct [facility] Immunizations Vaccine Date Source Lot Number Status Pneumococcal Polysaccharide 23-Valent 11/13/2012 CCT completed Pneumococcal Conjugate 13-Valent 01/12/2020 CCT completed Tdap 06/24/2009 CCT completed
== END 2024-11-16 11:32 | disposition home or self-care (01) ==
PROVIDERS: PCP Physician Assistant Medical; Visit Provider Hospitalist
DX: R91.8 Other nonspecific abnormal finding of lung field (principal); J18.9 Pneumonia, unspecified organism; I71.20 Thoracic aortic aneurysm, without rupture, unspecified; K44.9 Diaphragmatic hernia without obstruction or gangrene
CPT/HCPCS: 99214; G2211

== ENCOUNTER → 2024-11-16 10:59 | Outpatient (BNVA) | payer MEDICARE, SELFPAY | PROVIDERS: PCP Physician Assistant Medical; Visit Provider Hospitalist | DX: J84.9 Interstitial pulmonary disease, unspecified (principal); J18.9 Pneumonia, unspecified organism; R91.8 Other nonspecific abnormal finding of lung field; R06.00 Dyspnea, unspecified; K44.9 Diaphragmatic hernia without obstruction or gangrene; I71.21 Aneurysm of the ascending aorta, without rupture | CPT/HCPCS: 99212 ==

== ENCOUNTER 2025-07-28 10:53 | Outpatient (AMB) | payer MEDICARE, SELFPAY ==
--- OUTSIDE RECORDS SUMMARY | 2025-05-27 09:50 | XMS_ITS | Encounter Summary ---
Author Organization [facility] Address [address] [place] [address] Care Team Providers Care Bible Worker Name Role Phone Allison Guerra Primary Care Provider [phone] Reason for Visit * Reason Comments Follow-up Encounter Details Date Type Department Care Team (Late st Contact Info) Description 05/27/2025 9:50 AM EDT Office Visit [facility] [address] [place] [address] Eliecer Whiteside MD [address] [place] [address] [address] [place] [address] Social History Tobacco Use Types Packs/Day Years Used Date Smoking Tobacco: Never Smokeless Tobacco: Never Alcohol Use Standard Drinks/Week Comments Never 0 (1 standard drink = 0.6 oz pur e alcohol) Comments Unknown Sex and Gender Information Value Date Recorded Sex Assigned at Not on file Legal Sex Female 3:42 PM EST Gender Identity Not on file Sexual Orientation Not on file documented as of this encounter Last Filed Vital Signs Vital Sign Reading Time Taken Comments Blood Pressure 130/70 05/27/2025 9:40 AM EDT Pulse 68 05/27/2025 9:40 AM EDT Temperature - - Respiratory Rate - - Oxygen Saturation 97% 05/27/2025 9:40 AM EDT Inhaled Oxygen Concentration - - Weight 86.7 kg (191 lb 3.2 oz) 05/27/2025 9:40 A M EDT Height 167.6 cm (5' 6 ) 05/27/2025 9:40 AM EDT Body Mass Index 30.86 05/27/2025 9:40 AM EDT documented in this encounter Plan of Treatment Upcoming Encounters Date Type Department Care Team (Late st Contact Info) Description 10/18/2025 10:40 AM EST Office Visit [facility] [address] [place] [address] [address] [place] [address] Arely Messina NP [address] [place] [address] [address] [place] [address] documented as of this encounter Visit Diagnoses Not on filedocumented in this encounter Care Teams Bible Worker Relationship Specialty Start Date End Date Allison Guerra PA [address] [place] [address] PCP - General 02/16/22 documented as of this encounter
[2025-07-28 10:56] VITALS: BP 142/82; PULSE 59; O2SAT 97; BMI 31.0
--- NOTE | 2025-07-28 10:56 | A.OFFVIS_ITS ---
Vital Signs 3 07/28/25 10:56 Height 5 ft 6 in Weight 191 lb 12.835 oz BMI 31.0 BP 142/82 H Blood Pressure Location Lt brachial Position Sitting Pulse 59 Pulse Source Pulse Oximeter Pulse Oximetry (%) 97 Oxygen Delivery Method Room Air Intake Visit Reasons: ILD Accompanied by: Self / Same As Patient Allergies No Known Allergies Allergy (Verified 07/28/25 10:59) HPI Comments Details: The patient is a 75-year-old woman with a known history of an ascending aortic aneurysm followed closely by cardiology was been complaining of worsening dyspnea symptoms for the last few years. She did discuss the findings of the aneurysm with her senior formulation scientist who felt that the aneurysm was not resulting in any respiratory symptoms. In the meantime in view of her dyspnea symptoms she did undergo a stress test and currently waiting for the results. Due to her worsening this symptom she did undergo a chest x-ray that was read to be abnormal and subsequently followed up with a CT scan of the chest. I personally reviewed the CT scan of the chest with her. It appears that she does have some reticular changes at the bases suggesting little bit of scarring and atelectasis. And she also has some patchy areas of ground-glass opacities could represent evidence of atelectasis and or pneumonitis. Patient also had some calcified pulmonary nodules consistent with granulomas bilaterally subcentimeter in size. In addition to that the patient did have a hiatal hernia. She does have underlying reflux symptoms and they apparently have been getting worse. Explained to the patient that the reflux disease will result in potential pharyngeal laryngeal penetration and ultimately can result in a change issue that she has on her CT scan the patient is a will start practicing more reflux diet and following some recommendations that were provided. In the meantime we talked about other potential etiologies for the abnormalities on her CT scan suggesting some degree of interstitial lung disease. She is going to undergo blood work in addition to pulmonary function studies to further delineate. No need for bronchoscopy or biopsy at this point. Will discuss that further after reviewing her blood work and her pulmonary function studies. Further questioning the patient denies any smoking her life. [place] farm and they grow [place] trees. The patient does not have any birds and denies any other significant exposures. 08/22/2022 the patient is here for pulmonary follow-up visit. She is about the same. Still complaining of the dyspnea on exertion. again, will look at her pulmonary function studies there is the moderate diffusion impairment with DLCO 52% predicted. And again on her CT scan we personally reviewed demonstrating evidence of ground-glass opacities primarily in the right low lower with some areas of scarring and some minimal tree-in-bud. The distribution could be explained by microaspiration. Although other interstitial lung conditions are the differential. As far as the workup has been negative for any secondary causes the indeterminate with blood work. We did review her recent barium swallow demonstrating multiple abnormalities. She already has an appointment with GI and therefore will make sure that they have all the information available. The patient ultimately will need a repeat CT scan which with beginning of 2022 will follow-up with those results. I am hoping that the patient does not develop any progression of the underlying changes. Meantime I we did talk about other etiologies to explain the decreased diffusing capacity including pulmonary hypertension and anemia. She already had her hemoglobin checked which was okay. She does have a appointment with Cardiology soon a more been that she can get an echocardiogram to just address the question of pulmonary hypertension. 06/17/2023 the patient is here for a pulmonary follow-up visit. She continues to be about the same. Complaining of dyspnea on exertion. Moderate severity. She did not trial the Symbicort because was 400 dollars for co-pay and was not worth it. In the meantime the patient has been using her Protonix and also trying to maintain a reflux diet. Explained to her that back respirations is likely resulting in the changes in her lung issues. The patient has not had a CT scan in more than a year. At this point repeating the CT scan will be important. Depending on the results we can consider an alternative to the Symbicort. We again reviewed her pulmonary function studies demonstrating a moderate decrease in the diffusing capacity. Depending on her CT scan we can also consider repeating the PFTs. We also reviewed her blood work and was all negative for any connective tissue disease or hyper sensitivity reactions. If there is any worsening of her interstitial lung disease we will discuss further diagnostic interventions. 01/10/2024 the patient is here for a pulmonary follow-up visit. The patient continues to be about the same. Still complains of dyspnea on exertion. Moderate severity also has reflux symptoms. She has been on PPIs. She does follow closely with her doctors regarding her hiatal hernia. We did look at her last CT scan of the chest that was done back in June 2023 demonstrating areas of interstitial lung disease met primarily in the right lung with atelectasis. She also has pulmonary nodules. We have already done blood work evaluation to assess her interstitial lung disease and it was pretty unremarkable. I did suspect that has to do with aspiration pneumonitis. She is likely micro aspirating do her Hiatal hernia. Therefore, will go ahead and start her on a promotility agent just for 4 weeks and see if she sees any improvement. In addition to that due to the pneumonitis will start her on inhaled cortical steroid to see if that can improve the inflammatory changes. We did look at her last pulmonary function studies. There were hard for her to do. Still it demonstrated that she had a moderate diffusion impairment. Explained to her that that is likely causing her to have the increased shortness breath with activity. The other option is to use prednisone but at this point the patient would like to hold off on using any systemic steroids because of the adverse effects. She is agreeable to trying an inhaled cortical steroid to try to decrease that inflammation without causing the systemic adverse effects. This point the patient will start inhaled cortical steroids and will try the azithromycin for now. Will plan to repeat CT scan in June 2024 and will quickly follow-up after that to follow-up those changes. If the patient has any worsening symptoms prior to that she will call the office. 06/19/2024 the patient is here for a pulmonary follow-up visit. The patient overall has been doing okay. She did try the azithromycin only for a week and did not see any significant improvement and therefore she stopped it. She does not like the idea of taking too many antibiotics and she has taken a few antibiotics already for other things. In addition to that she tried the inhaler for about a month and she did not see any significant improvement. She did have a CT scan of the chest in 03/30/2024 at [facility] which we personally reviewed. The patient does have a moderate size hiatal hernia and does have the interstitial changes primarily at the bases. But now it was mentioned and we did evaluate that she does have some ground-glass nodular densities in the upper lung zones especially the right. Still could be aspiration related. He is working closely with the GI doctors and she is making sure she sleeps elevated in continues a reflux diet. We did blood work in the past and it all worked out pretty much unremarkable. Will plan to repeat the CT scan sometime in September to follow with ground-glass nodular densities. In the meantime she is going to follow-up with the GI doctor and see about the hiatal hernia appears 11/16/2024 the patient is here for a pulmonary follow-up visit. Overall seems to be doing well from a respiratory status. Denies any cough or shortness of breath. She did have a CT scan of the chest that we personally reviewed and compared to previous. Seems like her nodular density has resolved. She does have some areas of scarring primarily the bases likely for microaspiration but appeared to be minimal and stable. No evidence of any progression. She does have a moderate-sized hiatal hernia. She also underwent a barium swallow that we did review demonstrating a mild Zenker's diverticulum. Is going to follow-up with GI. She is not having any regurgitation food at this time. Her respiratory symptoms are better so I suspect also that her microaspiration is under control specially with good results of her CT scan. Therefore, she will continue with the reflux diet continue with the medications as prescribed. She will follow-up in the fall 2024. She has any issues prior to that she will call for an earlier assessment. Holding off on any further imaging at this time. 07/28/2025 the patient is here for a pulmonary follow-up visit. She continues to have dyspnea on exertion. Moderate severity. Even with minimal activity. Inhaler therapy has not been effective. She had a full cardiac evaluation had an echocardiogram. Catering Staff Member not feel that she has any cardiac explanation for symptoms. The patient did go for brief walking oximetry. Her heart rate was stable in her oxygen levels were stable although she was dyspneic. We did look at her PFTs that she had back in 2022 which demonstrated a isolated moderate diffusion impairment. Her previous CAT scan also demonstrated some areas of scarring. Indeed she can have some occult interstitial lung disease as she does have a low normal total lung capacity. Although this is less likely. Will plan to repeat the PFTs at this time. She does have multiple procedures scheduled so we have to wait until she recovers from her GI procedures. The patient can also have an x-ray when she has a PFTs we can further address for any worsening interstitial lung disease. She continues to try to exercise. She does know how to pace herself so she can able to do some of the activities of daily living at this time. Will follow-up after her PFTs and chest x-ray. [facility] Medical History (Updated 11/16/24 @ 22:24 by David Pires MD) Dyspnea Pneumonitis ILD (interstitial lung disease) Pulmonary nodules Hiatal hernia History of colon polyps Hypothyroidism Thoracic ascending aortic aneurysm Hyperlipidemia Hypertension Surgical History (Updated 03/20/22 @ 09:20 by Jesenia Salinas PA-C) History of vaginal surgery History of partial hysterectomy History of tonsillectomy History of appendectomy Social History Patient Tobacco Use Status: Never used Tobacco Review of Systems Const Denies fatigue and Denies weight loss Eyes Denies change in vision ENT Reports no additional complaints Card Denies chest pain, Reports dyspnea on exertion, Denies orthopnea and Denies paroxysmal nocturnal dyspnea Resp Reports cough and Reports dyspnea on exertion GI Denies abdominal pain, Reports dyspepsia and Reports heartburn Musc Reports no additional complaints Skin/Breast Denies rash Neuro Reports no additional complaints Psych Reports no additional complaints Endo Reports no additional complaints and Denies fatigue Physical Exam Vital Signs: Last Vital Signs Pulse 59 07/28/25 10:56 BP 142/82 H 07/28/25 10:56 Pulse Ox 97 07/28/25 10:56 Oxygen Delivery Method Room Air 07/28/25 10:56 BMI result Body Mass Index 31.0 Const General: alert Neck Neck: Yes normal visual inspection, Yes full ROM and Yes no lymphadenopathy Chest Chest palpation & inspection: normal inspection of the chest Resp Auscultation: no rales and diminished lung sounds Cardio Rate: regular rate Rhythm: regular rhythm Heart sounds: S1 normal heart sound present and S2 normal heart sound present GI Palpation (GI): Soft to palpation and nontender Auscultation: normal bowel sounds Skin General skin exam: rashes and/or lesions noted Results Reviewed Results Reviewed: Assessment & Plan Assessment & Plan (1) Pulmonary nodules: Code(s): R91.8 - Other nonspecific abnormal finding of lung field Category: Medical (2) ILD (interstitial lung disease): Code(s): J84.9 - Interstitial pulmonary disease, unspecified Category: Medical (3) Thoracic ascending aortic aneurysm: Comment: (4.5cm on 02/06/[address])->4.3(2022)->4.4 Code(s): I71.2 - Thoracic aortic aneurysm, without rupture Category: Medical (4) Hiatal hernia: Code(s): K44.9 - Diaphragmatic hernia without obstruction or gangrene Category: Medical (5) Dyspnea: Comment: better Code(s): R06.00 - Dyspnea, unspecified Category: Medical Qualifiers: Dyspnea type: dyspnea on exertion Qualified Code(s): R06.00 - Dyspnea, unspecified Plan Continue with reflux diet short-acting beta agonist as needed F/U with Cardiology/PCP re: aneuryms. CT chest Fall 2024, 1.6cm nodule not present lasix x 3 days PFTs follow-up 4-6 months Orders: Orders 2 PFT pulmonary function test Today R06.00 - Dyspnea, unspecified XR chest 2V Today J84.9 - Interstitial pulmonary disease, unspecified Medications: New 2 furosemide (Lasix) 20 mg PO DAILY 3 tabs 0RF Coding Level of Care Code Est Pt Level 4 (26640) Complex EM visit Add On G2211 Diagnoses Pulmonary nodules R91.8 ILD (interstitial lung disease) J84.9 Thoracic ascending aortic aneurysm I71.2 Hiatal hernia K44.9 Dyspnea on exertion R06.00 Dyspnea type: dyspnea on exertion Time Spent (min) 18
--- OUTSIDE RECORDS SUMMARY | 2025-07-28 13:51 | XMS_ITS | Encounter Summary ---
Author Organization [facility] Address [address] [place] [address] Care Team Providers Care Behavioral Sciences Department Chair Name Role Phone Allison Guerra PA-C Primary Care Provi naomie David Pires MD Unavailable [phone] Eliecer Whiteside MD Unavailable Unava ilable Ajith Osborne MD Unavailable [phone] Chas Rodriguez MD Unavailable Encounter Details Date Type Department Care Team (Late st Contact Info) Description 11/16/2024 Scanned Document [facility] PULMONOLGY SCAN Provider, Generic External Data Social History Tobacco Use Types Packs/Day Years Used Date Smoking Tobacco: Never Smokeless Tobacco: Never Alcohol Use Standard Drinks/Week Comments Never 0 (1 standard drink = 0.6 oz pur e alcohol) PHQ-2 Answer Date Recorded PHQ-2 Total Score 0 02/13/2024 Comments Unknown Sex and Gender Information Value Date Recorded Sex Assigned at Female 02/10/2024 3:43 PM EDT Legal Sex Female 10:32 AM EST Gender Identity Female 02/10/2024 3:43 PM EDT Sexual Orientation Not on file documented as of this encounter Plan of Treatment Upcoming Encounters Date Type Department Care Team (Late st Contact Info) Description 08/19/2025 11:00 AM EDT Office Visit [address] [place] [phone] Allison Guerra PA-C [address] [place] [address] documented as of this encounter Visit Diagnoses Not on filedocumented in this encounter Care Teams Behavioral Sciences Department Chair Relationship Specialty Start Date End Date Allison Guerra PA-C [address] [place] [address] PCP - General Internal Medicine 02/05/24 David Pires MD [address] [place] [address] Pulmonary Disease 02/05/24 Eliecer Whiteside MD [address] [place] [address] Cardiology-Scan 02/05/24 Ajith Osborne MD [address] [place] [address] Orthopedic Surgery-Scan 02/05/24 Chas Rodriguez MD [address] [place] [address] Endocrinology 04/26/25 Shasta Wade Obstetrics and Gynecology 01/08/24 Sully Yoo MD Physician Gastroenterology 01/08/24 documented as of this encounter
--- OUTSIDE RECORDS SUMMARY | 2025-07-28 13:51 | XMS_ITS | Encounter Summary ---
Author Organization [facility] Address [address] [place] [address] Care Team Providers Care Sales Operations Analyst Name Role Phone Allison Guerra PA-C Primary Care Provi naomie Dvaid Pires MD Unavailable [phone] MiriamEliecer Olvera MD Unavailable Unava ilable Ajith Osborne MD Unavailable [phone] Chas Rodriguez MD Unavailable Encounter Details Date Type Department Care Team (Late st Contact Info) Description 02/17/[address] [phone] Allison Guerra PA-C [address] [place] [address] Social History Tobacco Use Types Packs/Day Years [...] on file documented as of this encounter Miscellaneous Notes * Telephone Encounter - Gabby Chavez RN - 02/18/2024 1:07 PM EDT Left voicemail for Maribeth to call office or respond to [employer] message. * Telephone Encounter - Gabby Chavez RN - 02/17/2024 1:26 PM EDT Left voicemail for Maribeth regarding blood pressure medications. * Telephone Encounter - Heaven Flores - 02/17/2024 10:27 AM EDT Pt is asking for a refill of metoprolol. She stated the hydrochlorothiazide didn't improve her BP and might have cause it to increase. documented in this encounter Plan of Treatment Upcoming Encounters Date Type Department Care Team (Late st Contact Info) Description 08/19/2025 11:00 AM EDT Office Visit [address] [place] [phone] Allison Guerra PA-C [address] [place], [place] [phone] (Work) documented as of this encounter Visit Diagnoses Not on filedocumented in this encounter Care Teams Sales Operations Analyst Relationship Specialty Start Date End Date Allison Guerra PA-C [address] [place] [address] PCP - General Internal Medicine 02/05/24 David Pires MD [address] [place] [address] Pulmonary Disease 02/05/24 Eliecer Whiteside MD [address] [place] [address] Cardiology-Scan 02/05/24 Ajith Osborne MD [address] [place] [address] [address] [place] [address] Orthopedic Surgery-Scan 02/05/24 Chas Rodriguez MD [address] [place] [address] Endocrinology 04/26/25 Shasta Wade Obstetrics and Gynecology 01/08/24 Sully Yoo MD Physician Gastroenterology 01/08/24 documented as of this encounter
--- OUTSIDE RECORDS SUMMARY | 2025-07-28 13:52 | XMS_ITS | Clinical Summary ---
Author Organization [facility] Address [address] [place] [address] Care Team Providers Care Java Technical Manager Name Role Phone Allison Guerra PA-C Primary Care Provi naomie David Pires MD Unavailable [phone] Eliecer Whiteside MD Unavailable Unava ilable Ajith Osborne MD Unavailable [phone] Chas Rodriguez MD Unavailable Allergies No known active allergies Medications aspirin enteric coated (ECOTRIN LOW STRENGTH) 81 MG EC tablet Take 1 tablet (81 mg total) by mouth daily. Active multivitamin Tab tablet Take 1 tablet by mouth daily. Active senna-docusate (SENNA-S) 8.6-50 MG Take 1 tablet by mouth daily. Active cholecalciferol (CHOLECALCIFEROL) 25 MCG (1000 UT) tablet Take 2 tablets (2,000 Units total) by mouth daily. Active levothyroxine (SYNTHROID, LEVOTHROID) 88 MCG tabletIndications: Hypothyroidism, unspecified type TAKE ONE TABLET BY MOUTH EVERY DAY ON AN EMPTY STOMACH 30 tablet 5 02/09/20 25 Active famotidine (PEPCID) 20 MG tablet Take 1 tablet (20 mg total) by mouth 2 (two) times a day. 03/20/20 24 Active loperamide (IMODIUM A-D) 2 MG tablet Take 1 tablet (2 mg total) by mouth 4 (four) times a day as needed. Active amoxicillin (AMOXIL) 500 MG capsule TAKE 4 CAPSULES BY MOUTH ONE HOUR PRIOR TO APPOINTMENT 02/19/20 25 Active metoPROLOL SUCCINATE (TOPROL-XL) 25 MG 24 hr tabletIndications: Primary hypertension TAKE ONE TABLET BY MOUTH EVERY DAY 30 tablet 3 04/14/20 25 Active rosuvastatin (CRESTOR) 20 MG tabletIndications: Other hyperlipidemia TAKE ONE TABLET BY MOUTH EVERY DAY 30 tablet 5 04/28/20 25 Active Active Problems Problem Noted Date Diagnosed Date Elevated alkaline phosphatase level 08/19/2024 Ascending aortic aneurysm 02/05/2024 Overview (02/05/2024): ECHO 03/2023- 4.6cm and transverse aortic dilation of 3.7cm Paraesophageal hernia with gastroesophageal refl ux 02/05/2024 Overview (02/05/2024): Moderate. Gastroesophageal reflux disease without esophagi tis 02/05/2024 Pulmonary nodules 02/05/2024 Overview (02/05/2024): Follows with Dr. Pires; scheduled for repeat CT of the chest 2023. Interstitial lung disease 02/05/2024 Overview (02/05/2024): Follows with Dr. Pires [facility]. (Due to aspiration pneumonitis). History of colon polyps 02/05/2024 Other specified hypothyroidism 02/05/2024 Other hyperlipidemia 02/05/2024 Primary hypertension 02/05/2024 TIA (transient ischemic attack) 02/05/2024 IBS (irritable bowel syndrome) 02/05/2024 Enterocele with complete uterovaginal prolapse 0 02/05/2024 Migraine 02/05/2024 Dyspnea on exertion 02/05/2024 Overview (02/05/2024): Saw cardiology in 2022 echo done showed normal left ventricular systolic function with a left ventricular ejection fraction of 60 to 65%. Normal right ventricle size and function, mild to moderate aortic regurg, ascending aortic dilatation 4.7 cm transverse aortic dilatation of 3.7 cm. No significant change. CT scan without contrast pulmonary artery size is normal in caliber. Mild groundglass attenuation and tree-in-bud opacities in the lower lobes bilaterally suspicious for infectious and/or inflammatory etiology. Pharmacological nuclear stress test February 2022 probably normal. There is a small mild reversible anterior defect which resolves within attenuation correction. Cardiac CT September 2022 LAD is normal, left circumflex is patent, ramus intermedius is patent, right coronary artery is patent. Acute marginal branch is patent. In summary no significant coronary artery disease. Mild ascending thoracic aorta is dilated at 4.3 cm small to moderate-sized type I hiatal to 3. Following with pulmonary as well. Diagnosed with interstitial lung disease. Nonrheumatic aortic valve insufficiency 02/05/20 Overview (02/05/2024): Mild to moderate. Echo 2022. Old tear of meniscus of left knee 02/05/2024 Encounters Date Type Department Care Team Description 07/07/2025 Telephone [facility] [address] [place] [address] Allison Guerra PA-C Blood Pressure Check 05/07/[address] [address] Allison Guerra PA-C 05/06/[address] [phone] Allison Guerra PA-C 05/05/[address] [phone] Allison Guerra PA-C 05/05/2025 Scanned Document [address] [address] Primary Care, Scan 04/28/[address] [phone] Allison Guerra PA-C Other hyperlipidemia from Last 3 Months Immunizations Immunization Administration Dates Next Due Pneumococcal Conjugate 13-Valent 01/12/2020 Pneumococcal Conjugate 20-Valent 02/17/2025 Pneumococcal Polysaccharide 23-Valent 11/13/2012 Tdap 06/24/2009 Social History Tobacco Use Types Packs/Day Years [...] PM EDT Sexual Orientation Not on file Last Filed Vital Signs Vital Sign Reading Time Taken Comments Blood Pressure 136/80 07/06/2025 6:37 AM EDT Pulse 60 04/13/2025 2:27 PM EDT Temperature 36.3 C (97.3 F) 02/17/2025 10:19 AM EDT Respiratory Rate 17 02/17/2025 10:19 AM EDT Oxygen Saturation 97% 02/17/2025 10:19 AM EDT Inhaled Oxygen Concentration - - Weight 87.5 kg (193 lb) 04/13/2025 2:27 PM EDT Height 167.6 cm (5' 6 ) 04/13/2025 2:27 PM EDT Body Mass Index 31.15 04/13/2025 2:27 PM EDT Plan of Treatment Upcoming Encounters Date Type Department Care Team (Late st Contact Info) Description 08/19/2025 11:00 AM EDT Office Visit [address] [place] [address] Allison Guerra PA-C [address] [place] [address] Health Maintenance Due Date Last Done Comments Advance Care Planning 1950 Hepatitis C Virus Screening 1950 RSV Vaccine 60 years and older and Patients (1 - 1-dose 75+ series) 2023 Physical 02/12/2025 02/13/2024 Influenza Vaccine 06/11/2025 COVID-19 Vaccine (1 - 2024-25 season) 2025 Annual Wellness Visit 02/18/2026 02/17/2025 DXA Bone Density (Females,Ages 65 and older) 09/28/2026 09/28/2024 DTaP/Tdap/Td Vaccines Discontinued 06/24/2009 Colonoscopy Discontinued 12/15/2021 (Previously Completed) Mammogram Discontinued 09/28/2024, 05/16/2023 (Previously Completed) Pneumococcal Vaccines 50+ Completed 2024, 01/12/2020, 11/13/2012 Hepatitis B Vaccines Aged Out No long er eligible based on patient's age to complete this topic Zoster (Shingles) Vaccine Discontinued Procedures Procedure Name Priority Date/Time Associated Diagnosis Comments IMAGING BREAST/BX/MAMMO Routine 09/28/2024 7:28 AM EST IMAGING DEXA Routine 09/28/2024 from Last 3 Months or Most Recently Relevant to Health Maintenance Results * Imaging Breast/Bx/Mammo Result (09/28/2024 7:28 AM EST) Anatomical Region Laterality Modality Other us Scan Obstetrics And Gynecology IMG LEGACY PROCED URES Edited Result - Final * Imaging Dexa (09/28/2024) Anatomical Region Laterality Modality Other us Scan Radiology IMG LEGACY PROCEDURES Edited Res ult - Final from Last 3 Months or Most Recently Relevant to Health Maintenance Insurance [employer] MEDICARE [employer]M [employer] - [place] MEDICARE PART A & [place] [id number] Care Teams Java Technical Manager Relationship Specialty Start Date End Date Allison Guerra PA-C [address] [place] [address] PCP - General Internal Medicine 02/05/24 David Pires MD [address] [place] [address] Pulmonary Disease 02/05/24 Eliecer Whiteside MD [address] [place] [address] Cardiology-Scan 02/05/24 Ajith Osborne MD [address] [place] [address] Orthopedic Surgery-Scan 02/05/24 Chas Rodriguez MD [address] [address] Endocrinology 04/26/25 Shasta Wade Obstetrics and Gynecology 01/08/24 Sully Yoo MD Physician Gastroenterology 01/08/24
--- OUTSIDE RECORDS SUMMARY | 2025-07-28 13:52 | XMS_ITS | Patient Health Record ---
Author Organization [employer] [facility] Address [address] [place] [address] Care Team Providers Care Clerical Investigator Name Role Phone MARY NGUYEN Primary Care Provider Unavail able Shasta Wade Unavailable [phone] Allergies No Known Allergies Reason For Referral No Information Medications Medication SIG (Take, Route, Frequency, Duration) Notes Start Date End Date Status Metoprolol Succinate ER 25 MG Oral; Duration: 90 Active Levothyroxine Sodium 88 MCG 1 capsule in the morning on an empty stomach Orally Once a day; Duration: 30 days Active Rosuvastatin Calcium 20 MG 1 capsule Ora lly Once a day; Duration: 90 days Active Pantoprazole Sodium 40 MG Oral; Duration: 30 Active Multivitamins 1 ORAL daily; Durati on: -3 Daniel-MJ 12/03/2012 Active Excedrin Extra Strength 250-250-65 MG 2 tablets Orally PRN 08/01/2023 Active Advil 200 MG 1 tablet with food o r milk as needed Orally PRN 08/01/2023 Active immodium 1 tab Oral; Duration : 14 days PRN 08/01/2023 Active Social History Tobacco Use: Social History Observation Description Date Details (start date - stop date) Never Smoker NA - NA Tobacco Use/Smoking Question Answer Notes Are you a nonsmoker Alcohol Screen (Audit-C) Question Answer Notes Did you have a drink containing alcohol in the p ast year? No Points 0 Sexual History Question Answer Notes Had sex in the past 12 months (vaginal, oral, or anal)? No Section Notes: MARITAL STATUS: x 45 years in 2012 OCCUPATION: employed part-time RN NUTRITION: good diet EXERCISE: irregular walk miles at work SEXUAL ACTIVITY: monogamous relationship. Heterosexual Problems Problem Type SNOMED Code ICD Code Onset Dates Problem Status W/U Status Risk Notes Problem Postmenopausal atrophic vaginitis (33619057) Postmenopausal atrophic vaginitis (N95.2) Active confirmed Problem Herniation of rectum into vagina (654814897) Rectocele (N81.6) Active confirmed Problem Irritable bowel syndrome with diarrhea (311517812) Irritable bowel syndrome with diarrhea (K58.0) Active confirmed Problem Cystocele (888410152) Cystocele, unspecified (N81.10) Active confirmed Problem Vaginal enterocele (218133429) Vaginal enterocele (N81.5) Active confirmed Problem Prolapse of female genital organs (25760550) Female genital prolapse, unspecified (N81.9) Active confirmed Problem Hypothyroidism (41039553) Unspecified hypothyroidism (244.9) Active confirmed Major Problem Hyperlipidemia (79140993) Other and unspecified hyperlipidemia (272.4) Active confirmed Major Vital Signs Temperature 97.8 degrees Fahrenheit 08/03/2024 Blood pressure diastolic 86 mm Hg 08/03/2024 Height 67 in 08/03/2024 Blood pressure systolic 128 mm Hg 08/03/2024 Weight 189 lbs 08/03/2024 BMI 29.6 kg/m2 08/03/2024 Encounters Encounter Location Date Provider Diagnosis Total [address] [place] [address] 08/03/2024 Shasta Wade Encounter for screening mammogram for malignant neoplasm of breast Z12.31 ; Other specified disorders of bone density and structure, multiple sites M85.89 ; Cystocele, unspecified N81.10 ; Encounter for gynecological examination (general) (routine) without abnormal findings Z01.419 ; Rectocele N81.6 and Postmenopausal atrophic vaginitis N95.2 Assessments Encounter Date Diagnosis (ICD Code) Assessment Notes Treatment Notes Treatment Clinical Notes Section Notes 08/03/2024 Encounter for screening mammogram for malignant neoplasm of breast (ICD-10 - Z12.31) REGULAR MAMMOGRAMS AND SBE'S WERE RECOMMENDED. 08/03/2024 Other specified disorders of bone density and structure, multiple sites (ICD-10 - M85.89) DISCUSSED OSTEOPENIA AND ITS IMPACT ON HER HEALTH. ADEQUATE CALCIUM AND VIT D. WEIGHT BEARING EXERCISES. REPEAT BMD IN 2023. 08/03/2024 Cystocele, unspecified (ICD-10 - N81.10) DISCUSSED FINDINGS, DX AND TX OPTIONS INCLUDING BUT NOT LIMITED TO PESSARY OR ANTERIOR POSTERIOR REPAIR.. OFFERED REFERRAL TO DR RIOS. PAT REFUSED. 08/03/2024 Rectocele (ICD-10 - N81.6) 08/03/2024 Encounter for gynecological examination (general) (routine) without abnormal findings (ICD-10 - Z01.419) NO MORE PAP TESTS. 08/03/2024 Postmenopausal atrophic vaginitis (ICD-10 - N95.2) DISCUSSED FINDINGS, DX AND TX OPTIONS. PAT IS ASYMPTOMATIC AND REFUSED INTRAVAGINAL ESTROGEN. Plan Of Treatment Pending Test Test Name Order Date MAMMOGRAM, SCREENING 08/01/2023 MAMMOGRAM, SCREENING 08/03/2024 Bone Density 07/12/2017 BONE DENSITY 08/03/2024 MM Digital Mammo Screening 07/12/2017 MM Digital Mammo Screening 08/01/2023 MM Digital Mammo Screening 08/03/2024 Next Appt Details Provider Name:Shasta Kvng hawkins, 08/06/2025 10:20:00 AM, [address], [address], [place], [address], Insurance Providers Payer Name Payer Address Payer Phone Subscriber Number Group Number Insured Name Patient Relationship to Insured Coverage Start Date Coverage End Date MEDICARE [address] [place], [place] [id number] [phone] [id number] JONATAN CARVAJAL Self - patient is the insured MEDEX [address] [place] [address] [id number] JONATAN CARVAJAL Self - patient is the insured Medical (General) History Medical History History ICD Code Hypothyroidism, unspecified E03.9 Hyperlipidemia, unspecified E78.5 Vaginal enterocele N81.5 Inconclusive mammogram R92.2 Irritable bowel syndrome with diarrhea K 58.0 Female genital prolapse, unspecified N81 .9 Mammographic heterogeneous density, bila teral breasts R92.333 Surgical History Surgery Date(Month/Year) AMADOU/Ovaries Retained age 36 Appendectomy Anterior and Posterior Collporhaphy age 34 Total Right Knee Replacement Hospitalization History Reason Date(Month/Year) See Surgical Hx 3 Vaginal Deliveries
--- OUTSIDE RECORDS SUMMARY | 2025-07-28 13:52 | XMS_ITS | Clinical Summary ---
Author Organization [facility] Address [address] [place] [address] Phone Care Team Providers Care Network Architect Manager Name Role Phone Allison Guerra Primary Care Provider [phone] Allergies No known active allergies Medications rosuvastatin (CRESTOR) 10 mg tablet Take 1 tablet (10 mg total) by mouth 1 (one) time each day. Active levothyroxine (SYNTHROID, LEVOTHROID) 88 mcg tablet Take by mouth 1 (one) time each day before breakfast. Active metoprolol succinate (TOPROL-XL) 25 mg 24 hr tablet Take 1 tablet (25 mg total) by mouth 1 (one) time each day. Do not crush or chew. Active aspirin 81 mg EC tablet Take 1 tablet (81 mg total) by mouth 1 (one) time each day. Active loperamide (IMODIUM A-D) 2 mg tablet Take 1 tablet (2 mg total) by mouth 4 (four) times a day if needed for diarrhea. Active acetaminophen (TYLENOL 8 HOUR) 650 mg 8 hr tablet Take 1 tablet (650 mg total) by mouth every 8 (eight) hours if needed for mild pain. Do not crush, chew, or split. Active famotidine (PEPCID) 20 mg tablet Take by mouth. Active Active Problems Problem Noted Date Diagnosed Date Primary hypertension 02/05/2024 Other hyperlipidemia 02/05/2024 Dyspnea on exertion 02/05/2024 Overview (05/24/2025): Saw cardiology in 2022 echo done showed [...] interstitial lung disease. Nonrheumatic aortic valve insufficiency 02/17/20 Overview (05/24/2025): Mild to moderate. Echo 2022. Dyspnea 02/16/2022 Overview (05/24/2025): Last Assessment & Plan: Patient has a history of chronic exertional dyspnea. She denies worsening symptoms. Given her symptoms, the patient completed a pharmacological nuclear stress test and cardiac CT scan. Pharmacological nuclear stress test February 2022 was probably normal with a small mild reversible anterior defect which resolved with attenuation correction. Subsequently, the patient completed a cardiac CT September 2022 which revealed no significant coronary artery disease. Given her recent cardiac testing, her symptoms are likely noncardiac in nature. She continues to follow with her transportation worker Dr. Pires. Patient advised to seek emergency medical attention by calling 911 if they were to develop severe dyspnea, chest pain that did not resolve with rest or nitroglycerin, or if they were to faint. Encounters Date Type Department Care Team Description 05/27/2025 9:50 AM EDT Office Visit [facility] Cardiology [facility] [address] [facility] [address] [place] [address] Eliecer Whiteside MD 05/19/2025 Telephone [facility] [address] [place] [address] Eliecer Whiteside MD from Last 3 Months Social History Tobacco Use Types Packs/Day Years Used Date Smoking Tobacco: Never Smokeless Tobacco: Never Tobacco Cessation:Counseling Given: Not Answered Alcohol Use Standard Drinks/Week Comments Never 0 (1 standard drink = 0.6 oz pur e alcohol) Comments Unknown Sex and Gender Information Value Date Recorded Sex Assigned at Not on file Legal Sex Female 3:42 PM EST Gender Identity Not on file Sexual Orientation Not on file Obstetrics History Last Filed Vital Signs Vital Sign Reading [...] Mass Index 30.86 05/27/2025 9:40 AM EDT Plan of Treatment Upcoming Encounters Date Type Department Care Team (Late st Contact Info) Description 10/18/2025 10:40 AM EST Office Visit [facility] Cardiology [facility] [address] [place] [phone] Arely Messina NP [address] [place] [address] [address] [place] [phone] Health Maintenance Due Date Last Done Comments Zoster Vaccines (1 of 2) 1998 DTaP,Tdap,and Td Vaccines (2 - Td or Tdap) 06/24/2019 06/24/2009 Cholesterol Screening (Lipid Panel) 10/21/2022 Falls Risk Assessment 10/21/2022 Hepatitis C Screening 10/21/2022 Osteoporosis Screening (Bone Density Screening) 10/21/2022 Social Influencers of Health Screening 10/21/2022 RSV Immunization Adult Patients (1 - 1-dose 75+ series) 2023 Medicare Annual Wellness Visit 02/12/2024 02/11/2023 Depression Screening 11/11/2024 COVID-19 Vaccine ( season) 2025 Influenza Vaccine (#1) 2025 2, 09/22/2020, 12/04/2019, Additional history exists Hypertension/CHF/CAD Annual BMP Blood Test 03/30/2026 03/30/2025 Pneumococcal Vaccine: 50+ Years Completed 02/17/2025, 01/12/2020, 11/19/2018, Additional history exists HIB Vaccines Aged Out No longer eligi ble based on patient's age to complete this topic HPV Vaccines Aged Out No longer eligi ble based on patient's age to complete this topic Hepatitis A Vaccines Aged Out No long er eligible based on patient's age to complete this topic Hepatitis B Vaccines Aged Out No long er eligible based on patient's age to complete this topic IPV Vaccines Aged Out No longer eligi ble based on patient's age to complete this topic MMR Vaccines Aged Out No longer eligi ble based on patient's age to complete this topic Meningococcal ACWY Vaccine Aged Out N o longer eligible based on patient's age to complete this topic Meningococcal B Vaccine Aged Out No l onger eligible based on patient's age to complete this topic RSV Immunization Patients Under 20 months Aged Out No longer eligible based on patient's age to complete this topic Varicella Vaccines Aged Out No longer eligible based on patient's age to complete this topic Insurance [facility] Care Teams Network Architect Manager Relationship Specialty Start Date End Date Allison Guerra PA [address] [facility] [address] [facility] [employer] [address] PCP - General 02/16/22
--- OUTSIDE RECORDS SUMMARY | 2025-07-28 13:52 | XMS_ITS | Encounter Summary ---
Author Organization [facility] Address [address] [place] [address] Care Team Providers Care Oracle Fusion Consultant Name Role Phone Allison Guerra PA-C Primary Care Provi naomie David Pires MD Unavailable [phone] Eliecer Whiteside MD Unavailable Unava ilable Ajith Osborne MD Unavailable [phone] Chas Rodriguez MD Unavailable Encounter Details Date Type Department Care Team (Late st Contact Info) Description 05/05/2025 Scanned Document [address] [phone] Primary Care, Scan Social History Tobacco Use Types Packs/Day Years [...] Encounters Date Type Department Care Team (Late Contact Info) Description 08/19/2025 11:00 AM EDT Office Visit [address] [place] [address] Allison Guerra PA-C [address] [place] [address] documented as of this encounter Visit Diagnoses Not on filedocumented in this encounter Care Teams Oracle Fusion Consultant Relationship Specialty Start Date End Date Allison Guerra PA-C [address] [place] [address] PCP - General Internal Medicine 02/05/24 David Pires MD [address] [place] [address] Pulmonary Disease 02/05/24 Eliecer Whiteside MD [address] [place] [address] Cardiology-Scan 02/05/24 Ajith Osborne MD [address] [place] [address] [address] [place] [address] Orthopedic Surgery-Scan 02/05/24 Chas Rodriguez MD [address] [facility] [address] [place] [address] Endocrinology 04/26/25 Shasta Wade Obstetrics and Gynecology 01/08/24 Sully Yoo MD Physician Gastroenterology 01/08/24 documented as of this encounter
--- OUTSIDE RECORDS SUMMARY | 2025-07-28 13:52 | XMS_ITS | Encounter Summary ---
Author Organization [facility] Address [address] [place] [address] Care Team Providers Care Mortising Machine Operator Name Role Phone Allison Guerra PA-C Primary Care Provi naomie David Pires MD Unavailable [phone] Eliecer Whiteside MD Unavailable Unava ilable Ajith Osborne MD Unavailable [phone] Chas Rodriguez MD Unavailable Encounter Details Date Type Department Care Team (Late st Contact Info) Description 09/25/2024 Scanned Document [facility] THORACIC SURG SCAN Provider, Generic External Data Social History [...] 08/19/2025 11:00 AM EDT Office Visit [address] [place] [phone] Allison Guerra PA-C [address] [place] [address] documented as of this encounter Visit Diagnoses Not on filedocumented in this encounter Care Teams Mortising Machine Operator Relationship Specialty Start Date End Date Allison Guerra PA-C [address] [place] [address] PCP - General Internal Medicine 02/05/24 David Pires MD [address] [place] [address] Pulmonary Disease 02/05/24 Eliecer Whiteside MD [address] [place] [address] Cardiology-Scan 02/05/24 Ajith Osborne MD [address] [place] [address] Orthopedic Surgery-Scan 02/05/24 Chas Rodriguez MD [address] [place] [address] Endocrinology 04/26/25 Shasta Wade Obstetrics and Gynecology 01/08/24 Sully Yoo MD Physician Gastroenterology 01/08/24 documented as of this encounter
--- OUTSIDE RECORDS SUMMARY | 2025-07-28 13:52 | XMS_ITS ---
Author Name [facility] Organization Unknown Results Test Name/Text Value Interpretation Date Range Source Bacteria #/area UrnS HPF NONE SEEN Normal 04/03/2025 - [facility] Bilirub Ur Ql Strip NEGATIVE Normal 04/03/2025 - [facility] RBC #/area UrnS HPF NONE SEEN Normal 04/03/2025 - [facility] Color Ur YELLOW Normal 04/03/2025 - [facility] WBC #/area UrnS HPF NONE SEEN Normal 04/03/2025 - [facility] Appearance Ur CLEAR Normal 04/03/2025 - [facility] Nitrite Ur Ql Strip NEGATIVE Normal 04/03/2025 - [facility] pH Ur Strip 5.5 Normal 04/03/2025 5 - 8 [facility] Squamous #/area UrnS HPF 0-5 04/03/2025 - [facility] Service Cmnt-Imp 04/03/2025 [facility] Hgb Ur Ql Strip NEGATIVE Normal 04/03/2025 - [facility] Leukocyte esterase Ur Ql Strip NEGATIVE Normal 04/03/2025 - [facility] Hyaline Casts #/area UrnS LPF NONE SEEN Normal 04/03/2025 - [facility] Glucose Ur Ql Strip NEGATIVE Normal 04/03/2025 - [facility] Prot Ur Ql Strip NEGATIVE Normal 04/03/2025 - [facility] Sp Gr Ur Strip 1.013 Normal 04/03/2025 1.001 - 1.035 [facility] Ketones Ur Ql Strip NEGATIVE Normal 04/03/2025 - [facility] Trigl SerPl-mCnc 222.0 mg/dL Above high normal 03/31/2025 - 150 [facility] NonHDLc SerPl-mCnc 98.0 mg/dL (calc) Normal 03/31/2025 - 130 [facility] HDLc SerPl-mCnc 46.0 mg/dL Below low normal 03/31/2025 - [facility] Cholest/HDLc SerPl 3.1 (calc) Normal 03/31/2025 - 5 [facility] Cholest SerPl-mCnc 144.0 mg/dL Normal 03/31/2025 - 200 [facility] LDLc SerPl Calc-mCnc 70.0 mg/dL (calc) Normal 03/31/2025 [facility] HbA1c MFr Bld 6.1 % Above high normal 03/31/2025 - 5.7 [facility] Neutrophils # Bld Auto 4706.0 cells/uL Normal 03/31/2025 1500 - 7800 [facility] Lymphocytes # Bld Auto 1946.0 cells/uL Normal 03/31/2025 850 - 3900 [facility] Neutrophils NFr Bld Auto 63.6 % Normal 03/31/2025 [facility] Monocytes # Bld Auto 511.0 cells/uL Normal 03/31/2025 200 - 950 [facility] Eosinophil # Bld Auto 170.0 cells/uL Normal 03/31/2025 15 - 500 [facility] Eosinophil NFr Bld Auto 2.3 % Normal 03/31/2025 [facility] Hct VFr Bld Auto 40.6 % Normal 03/31/2025 35 - 45 [facility] Basophils # Bld Auto 67.0 cells/uL Normal 03/31/2025 0 - 200 [facility] RBC # Bld Auto 4.25 Million/uL Normal 03/31/2025 3.8 - 5. 1 [facility] Platelet # Bld Auto 243.0 Thousand/uL Normal 03/31/2025 140 - 400 [facility] MCH RBC Qn Auto 32.0 pg Normal 03/31/2025 27 - [address] [facility] RBC Auto 95.5 fL Normal 03/31/2025 80 - 100 [facility] MCHC RBC Auto-EntMCnc 33.5 g/dL Normal 03/31/2025 32 - 36 [facility] Monocytes NFr Bld Auto 6.9 % Normal 03/31/2025 [facility] Hgb Bld-mCnc 13.6 g/dL Normal 03/31/2025 11.7 - 15.5 [facility] RDW RBC Auto 12.7 % Normal 03/31/2025 11 - 15 [facility] Basophils NFr Bld Auto 0.9 % Normal 03/31/2025 [facility] WBC # Bld Auto 7.4 Thousand/uL Normal 03/31/2025 3.8 - 10 .8 [facility] PMV Bld Antelmo-Karena 11.9 fL Normal 03/31/2025 7.5 - 12.5 [facility] Lymphocytes NFr Bld Auto 26.3 % Normal 03/31/2025 [facility] Creat SerPl-mCnc 0.89 mg/dL Normal 03/31/2025 0.6 - 1 Q [facility] Calcium SerPl-mCnc 9.3 mg/dL Normal 03/31/2025 8.6 - 10.4 [facility] Chloride SerPl-sCnc 105.0 mmol/L Normal 03/31/2025 98 - 1 10 [facility] Glucose SerPl-mCnc 107.0 mg/dL Above high normal 03/31/2025 65 - 99 [facility] eGFRcr SerPlBld CKD-EPI 2020 67.0 mL/min/1.73m2 Normal 03/31/2025 - [facility] Sodium SerPl-sCnc 139.0 mmol/L Normal 03/31/2025 135 - 14 6 [facility] BUN SerPl-mCnc 13.0 mg/dL Normal 03/31/2025 7 - [address] CO2 SerPl-sCnc 27.0 mmol/L Normal 03/31/2025 20 - 32 [facility] Potassium SerPl-sCnc 4.8 mmol/L Normal 03/31/2025 3.5 - 5 .3 [facility] BUN/Creat SerPl SEE NOTE: 03/31/2025 6 - [address] 25(OH)D3+25(OH)D2 SerPl-mCnc 37.0 ng/mL Normal 03/31/2025 30 - 100 [facility] TSH SerPl-aCnc 2.71 mIU/L Normal 03/31/2025 0.4 - 4.[address] [facility] Albumin/Glob SerPl 1.9 (calc) Normal 03/31/2025 1 - 2.5 [facility] AST SerPl-cCnc 20.0 U/L Normal 03/31/2025 10 - 35 [facility] ALT SerPl-cCnc 16.0 U/L Normal 03/31/2025 6 - 29 [facility] ALP SerPl-cCnc 105.0 U/L Normal 03/31/2025 37 - 153 [facility] Bilirub SerPl-mCnc 0.6 mg/dL Normal 03/31/2025 0.2 - 1.2 [facility] Prot SerPl-mCnc 7.0 g/dL Normal 03/31/2025 6.1 - 8.[address] [facility] Globulin Ser Calc-mCnc 2.4 g/dL (calc) Normal 03/31/2025 1.9 - 3.7 [facility] Indirect SerPl-mCnc 0.5 mg/dL (calc) Normal 03/31/2025 0.2 - 1.2 [facility] Albumin SerPl-mCnc 4.6 g/dL Normal 03/31/2025 3.6 - 5.1 [facility] Direct SerPl-mCnc 0.1 mg/dL Normal 03/31/2025 - [facility] ALP Bone SerPl-mCnc 16.2 mcg/L Normal 12/14/2024 5.6 - 29 [facility] Calcium SerPl-mCnc 9.6 mg/dL Normal 12/14/2024 8.6 - 10.4 [facility] PTH-Intact SerPl-mCnc 58.0 pg/mL Normal 12/14/2024 16 - 77 [facility] Ca-I SerPl-mCnc 5.1 mg/dL Normal 12/14/2024 4.7 - 5.[address] [facility] Phosphate SerPl-mCnc 3.5 mg/dL Normal 12/14/2024 2.1 - 4. 3 [facility] T4 Free SerPl-mCnc 1.1 ng/dL Normal 12/14/2024 0.8 - 1.8 [facility] Chloride SerPl-sCnc 103.0 mmol/L Normal 12/14/2024 98 - 1 10 [facility] ALT SerPl-cCnc 20.0 U/L Normal 12/14/2024 6 - 29 [facility] T Albumin/Glob SerPl 1.8 (calc) Normal 12/14/2024 1 - 2.5 [facility] CO2 SerPl-sCnc 29.0 mmol/L Normal 12/14/2024 20 - 32 [facility] Bilirub SerPl-mCnc 0.7 mg/dL Normal 12/14/2024 0.2 - 1.2 [facility] Albumin SerPl-mCnc 4.5 g/dL Normal 12/14/2024 3.6 - 5.1 [facility] Potassium SerPl-sCnc 4.7 mmol/L Normal 12/14/2024 3.5 - 5 .3 [facility] Glucose SerPl-mCnc 109.0 mg/dL Above high normal 12/14/2024 65 - 99 [facility] Calcium SerPl-mCnc 9.6 mg/dL Normal 12/14/2024 8.6 - 10.4 [facility] Creat SerPl-mCnc 0.76 mg/dL Normal 12/14/2024 0.6 - 1 Q [facility] Sodium SerPl-sCnc 138.0 mmol/L Normal 12/14/2024 135 - 14 6 [facility] Globulin Ser Calc-mCnc 2.5 g/dL (calc) Normal 12/14/2024 1.9 - 3.7 [facility] AST SerPl-cCnc 20.0 U/L Normal 12/14/2024 10 - 35 [facility] ALP SerPl-cCnc 112.0 U/L Normal 12/14/2024 37 - 153 [facility] BUN SerPl-mCnc 13.0 mg/dL Normal 12/14/2024 7 - [address] [facility] BUN/Creat SerPl SEE NOTE: Normal 12/14/2024 6 - [address] [facility] Prot SerPl-mCnc 7.0 g/dL Normal 12/14/2024 6.1 - 8.[address] [facility] eGFRcr SerPlBld CKD-EPI 2020 81.0 mL/min/1.73m2 Normal 12/14/2024 - [facility] 25(OH)D3+25(OH)D2 SerPl-mCnc 35.0 ng/mL Normal 12/14/2024 30 - 100 [facility] TSH SerPl-aCnc 2.72 mIU/L Normal 12/14/2024 0.4 - 4.[address] [facility] History of Medication Use Medication Directions Dispensed Refills Start Date End Date Stat amoxicillin (AMOXIL) 500 MG capsule TAKE 4 CAPSULES BY MOUTH ONE HOUR PRIOR TO APPOINTMENT 02/18/2025 active levothyroxine (SYNTHROID, LEVOTHROID) 88 MCG tablet TAKE ONE TABLET BY MOUTH EVERY DAY ON AN EMPTY STOMACH 02/08/2025 active famotidine (PEPCID) 20 MG tablet Take 1 tablet (20 mg total) by mouth 2 (two) times a day. 03/20/2024 active rosuvastatin (CRESTOR) 20 MG tablet Take 1 tablet (20 mg total) by mouth daily. 02/28/2024 active cholecalciferol (CHOLECALCIFEROL) 25 MCG (1000 UT) tablet Take 1 tablet (1,000 Units total) by mouth daily. active cholecalciferol (CHOLECALCIFEROL) 25 MCG (1000 UT) tablet Take 2 tablets (2,000 Units total) by mouth daily. active furosemide (LASIX) 20 MG tablet Take 1 tablet (20 mg total) by mouth daily. active loperamide (IMODIUM A-D) 2 MG tablet Take 1 tablet (2 mg total) by mouth 4 (four) times a day as needed. active senna-docusate (SENNA-S) 8.6-50 MG Take 1 tablet by mouth daily. active Problems Problem Status Onset Date Problem Type Date of Resoluti on Source Ascending aortic aneurysm active 2024-02-05 [facility]Act [facility] History of colon polyps active 2024-02-05 [facility]Act [facility] Other hyperlipidemia active 2024-02-05 [facility]Act [facility] Dyspnea on exertion active 2024-02-05 ProblemAct [facility] Gastroesophageal reflux disease without esophagitis active 2024-02-05 ProblemAct [facility] Paraesophageal hernia with gastroesophageal reflux active 2024-02-05 ProblemAct [facility] T Enterocele with complete uterovaginal prolapse active 2024-02-05 ProblemAct [facility] Other specified hypothyroidism active 2024-02-05 [facility]Act [facility] IBS (irritable bowel syndrome) active 2024-02-05 [facility]Act [facility] Primary hypertension active 2024-02-05 ProblemAct [facility] Old tear of meniscus of left knee active 2024-02-05 ProblemAct [facility] TIA (transient ischemic attack) active 2024-02-05 ProblemAct [facility] Pulmonary nodules active 2024-02-05 ProblemAct [facility] Elevated alkaline phosphatase level active 2024-08-19 ProblemAct [facility] Interstitial lung disease active 2024-02-05 ProblemAct [facility] Migraine active 2024-02-05 ProblemAct [facility] Nonrheumatic aortic valve insufficiency active 2024-02-05 ProblemAct [facility] Immunizations Vaccine Date Source Lot Number Status Pneumococcal Conjugate 20-Valent 02/17/2025 CCT [id number] completed Pneumococcal Conjugate 13-Valent 01/12/2020 [facility] completed Pneumococcal Conjugate 13-Valent 01/12/2020 [facility] completed Pneumococcal Polysaccharide 23-Valent 11/13/2012 [facility] completed Pneumococcal Polysaccharide 23-Valent 11/13/2012 [facility] completed Tdap 06/24/2009 [facility] completed Tdap 06/24/2009 [facility] completed Encounters Encounter Type Encounter Reason Primary Diagnosis Location Date Ambulatory Abnormal levels of other serum enzymes Abnormal levels of other serum enzymes [facility] 04/13/2025 Ambulatory Encounter for genera adult medical examination without abnormal findings Encounter for general adult medical examination without abnormal findings [facility] 02/17/2025 Ambulatory Abnormal levels of other serum enzymes Abnormal levels of other serum enzymes [facility] 09/15/2024 Ambulatory Aneurysm of the ascending aorta, without rupture Aneurysm of the ascending aorta, without rupture [facility] 08/19/2024 Ambulatory Diaphragmatic hernia without obstruction or gangrene Diaphragmatic hernia without obstruction or gangrene [facility] 02/13/2024 Care Team Organization Name Specialty Phone Email Start Date End Da te [facility] THOMAS Primary Care 02/13/2024 [facility] MARY GUZMAN Primary Care 02/06/2024 [facility] NO PCP Primary Care 01/15/2024
== END 2025-07-28 11:28 | disposition home or self-care (01) ==
LOC: HO.HPS 10:54
PROVIDERS: PCP Physician Assistant Medical; Visit Provider Hospitalist
DX: R91.8 Other nonspecific abnormal finding of lung field (principal); J84.9 Interstitial pulmonary disease, unspecified; I71.20 Thoracic aortic aneurysm, without rupture, unspecified; K44.9 Diaphragmatic hernia without obstruction or gangrene; R06.00 Dyspnea, unspecified
CPT/HCPCS: 99214; G2211

== ENCOUNTER → 2025-07-28 10:53 | Outpatient (BNVA) | payer MEDICARE, SELFPAY | PROVIDERS: PCP Physician Assistant Medical; Visit Provider Hospitalist | DX: J84.9 Interstitial pulmonary disease, unspecified (principal); R91.8 Other nonspecific abnormal finding of lung field; I71.21 Aneurysm of the ascending aorta, without rupture; K44.9 Diaphragmatic hernia without obstruction or gangrene; R06.00 Dyspnea, unspecified | CPT/HCPCS: 99212 ==